=== PATIENT | female | born 1955 | race American Indian/Alaskan Native ===

== ENCOUNTER 2019-04-02 23:24 | Inpatient (IN) | payer MEDICARE ==
[2019-04-02] MEDS ORDERED: HYDROcodone/ACETAMINOPHEN 5-325 MG TAB PO ONE (23:59)
--- NOTE | 2019-04-03 00:07 | Emergency Department Report ---
HPI - General Chief Complaint: Dyspnea/Respdistress Time Seen by Provider: 04/02/19 23:49 - HPI HPI: Room 9 The patient is 63-year-old female presenting with a chief complaint of bilateral lower externally pain and swelling. The patient states she's had progressive bilateral lower extremity pain and swelling since February 2019. The patient states she has not yet sought medical attention for this. The patient states this will worsen to the point where today she is unable to walk. Patient admits to shortness of breath and dyspnea on exertion for several weeks. The patient states she is unable to walk because her legs are too heavy Location: [See above] Duration: [See above] Quality: [See above] Severity: [See above] Timing: [See above] Context: [See above] Modifying factors: [See above] Associated signs and symptoms: [see above] ED Past Medical Hx - Past Medical History Previous Medical History?: Yes Hx Hypertension: Yes Additional medical history: obesity - Surgical History Past Surgical History?: No - Family History Family history: no significant - Social History Smoking Status: Never Smoker Substance Use Type: None (denies illicit drug use) - Medications Home Medications: Home Medications Medication Instructions Recorded Confirmed Last Taken Type Acetaminophen [Tylenol Arthritis] 650 mg PO Q6HR PRN #30 tablet.er 01/19/18 Unknown Rx Ibuprofen [Motrin] 600 mg PO Q8H PRN #30 tablet 01/19/18 Unknown Rx ED Review of Systems ROS: Stated complaint: LEG SWELLING/PAIN Other details as noted in HPI Constitutional: no symptoms reported Eyes: denies: eye pain ENT: denies: throat pain Respiratory: shortness of breath, SOB with exertion Cardiovascular: denies: chest pain Endocrine: no symptoms reported Gastrointestinal: denies: abdominal pain Genitourinary: denies: dysuria Musculoskeletal: myalgia Neurological: denies: headache Physical Exam - Physical Exam Physical Exam: GENERAL: The patient is well-developed well-nourished obese female lying on s tretcher not appearing to be in acute distress. [] HEENT: Normocephalic. Atraumatic. Extraocular motions are intact. Patient has moist mucous membranes. NECK: Supple. Trachea midline CHEST/LUNGS: Clear to auscultation. There is no respiratory distress noted. HEART/CARDIOVASCULAR: Regular. There is no tachycardia. There is no gallop rub or murmur. ABDOMEN: Abdomen is soft, nontender. Patient has normal bowel sounds. There is no abdominal distention. SKIN: There is no rash. There is pitting edema however the patient is exquisitely tender to palpation and is morbidly obese so the degree of pitting edema not fully evaluated. There is no diaphoresis. NEURO: The patient is awake, alert, and oriented. The patient is cooperative. The patient has normal speech MUSCULOSKELETAL: There is no evidence of acute injury. ED Medical Decision Making - Lab Data Result diagrams: 04/03/19 01:32 04/03/19 01:32 Laboratory Tests 04/03/19 04/03/19 04/03/19 01:32 01:32 01:32 WBC 7.3 RBC 3.47 L Hgb 10.4 Hct 31.5 MCV 91 MCH 30 MCHC 33 RDW 14.5 Plt Count 195 Lymph % (Auto) 19.2 [place] % (Auto) 8.2 H Eos % (Auto) 4.4 H Baso % (Auto) 0.5 Lymph # 1.4 [place] # 0.6 Eos # 0.3 Baso # 0.0 Seg Neutrophils % 67.7 Seg Neutrophils # 5.0 PT 13.6 INR 1.03 Sodium 138 Potassium 4.2 Chloride 104.3 Carbon Dioxide 24 Anion Gap 14 BUN 18 H Creatinine 1.0 Estimated GFR > 60 BUN/Creatinine Ratio 18 Glucose 136 H Calcium 8.9 Total Bilirubin 0.30 AST 13 ALT 6 L Alkaline Phosphatase 66 Total Creatine Kinase 50 Troponin T < 0.010 NT-Pro-B Natriuret Pep 1107 H Total Protein 7.5 Albumin 3.4 L Albumin/Globulin Ratio 0.8 - EKG Data -: EKG Interpreted by Me EKG shows normal: sinus rhythm Rate: normal - EKG Data When compared to previous EKG there are: previous EKG unavailable Interpretation: normal EKG - Radiology Data Radiology results: report reviewed (chest x-ray), image reviewed (chest x-ray) interpreted by me: Chest [id number]. No pneumothorax [facility] [address] [place] [address] XRay Report Signed Patient: SANKET THOMAS MR#: [id number] : 1955 Acct:[id number] Age/Sex: 63 / F ADM Date: 04/02/19 Loc: ED Attending Dr: Ordering Physician: SURINDER HADDAD MD Date of Service: 04/02/19 Procedure(s): XR chest 1V ap Accession Number(s): [id number] cc: SURINDER HADDAD MD Fluoro Time In Minutes: CHEST 1 VIEW INDICATION: shortness of breath. COMPARISON: None. FINDINGS: Support devices: None. Heart: Upper limits of normal. Lungs/Pleura: There appears to be pulmonary venous hypertension. No pulmonary edema, significant effusion, or pneumothorax. IMPRESSION: 1. Megaly with presumed pulmonary venous hypertension. Signer Name: Edinson Scales MD Signed: 04/03/2019 12:25 AM Workstation Name: [id number] Transcribed By: ALTAGARCIA Dictated By: Edinson Scales MD Electronically Authenticated By: Ednison Scales MD Signed Date/Time: 04/03/1924 DD/ TD/TT: - Differential Diagnosis CHF, renal failure, volume overload Critical care attestation.: If time is entered above; I have spent that time in minutes in the direct care of this critically ill patient, excluding procedure time. ED Disposition Clinical Impression: New onset of congestive heart failure, Peripheral edema, Shortness of breath Disposition: -09 OP ADMIT IP TO THIS HOSP Is pt being admited?: Yes Does the pt Need Aspirin: Yes Condition: Fair Referrals: BERTHA GORDONBETHANY MD ROCIO [Primary Care Provider] - 3-5 Days Time of Disposition: 02:16 (hospitalist paged (Dr. Cheyenne Max))
--- NOTE | 2019-04-03 00:30 | XRay Report ---
CHEST 1 VIEW INDICATION: shortness of breath. COMPARISON: None. FINDINGS: Support devices: None. Heart: Upper limits of normal. Lungs/Pleura: There appears to be pulmonary venous hypertension. No pulmonary edema, significant effu jak, or pneumothorax. IMPRESSION: 1. Megaly with presumed pulmonary venous hypertension. Signer Name: Edinson Scales MD Signed: 04/03/2019 12:25 AM Workstation Name: [id number]
[2019-04-03 01:54] LABS: Basophils % (Auto) 0.5 % (0.0-1.8); Eosinophils # (Auto) 0.3 K/mm3 (0.0-0.4); Eosinophils % (Auto) 4.4 % (0.0-4.3); Hematocrit 31.5 % (30.3-42.9); Hemoglobin 10.4 gm/dl (10.1-14.3); Lymphocytes # (Auto) 1.4 K/mm3 (1.2-5.4); Lymphocytes % (Auto) 19.2 % (13.4-35.0); Mean Corpuscular HGB Conc 33 % (30-34); Mean Corpuscular Volume 91 fl (79-97); Monocytes # (Auto) 0.6 K/mm3 (0.0-0.8); Monocytes % (Auto) 8.2 % (0.0-7.3); Platelet Count 195 K/mm3 (140-440); Red Blood Count 3.47 M/mm3 (3.65-5.03); Red Cell Distribution Width 14.5 % (13.2-15.2)
[2019-04-03 02:11] LABS: Alanine Aminotransferase 6 units/L (7-56); Albumin 3.4 g/dL (3.9-5); BUN/Creatinine Ratio 18; Blood Urea Nitrogen 18 mg/dL (7-17); Calcium 8.9 mg/dL (8.4-10.2); Hemolysis Index 1; INR 1.03 (0.87-1.13)
[2019-04-03] MEDS ORDERED: ASPIRIN 325 MG TAB PO ONE (02:17)
[2019-04-03] MEDS ORDERED: FUROSEMIDE 40 MG/4 ML INJ IV ONE (02:17)
[2019-04-03 02:23] LABS: Creatine Kinase MB < 1.0 ng/mL (0.0-4.0)
[2019-04-03] MEDS ORDERED: ONDANSETRON 4 MG/2 ML INJ IV PRN (02:59)
[2019-04-03] MEDS ORDERED: ALBUTEROL 2.5 MG/3 ML NEBU IH PRN (02:59)
[2019-04-03] MEDS ORDERED: ACETAMINOPHEN 325 MG TAB PO PRN (02:59)
[2019-04-03] MEDS ORDERED: oxyCODONE /ACETAMINOPHEN 5-325MG TAB PO PRN (03:46)
--- NOTE | 2019-04-03 04:11 | History and Physical Report ---
<ANAI DUDLEY - Last Filed: 04/03/19 04:11> History of Present Illness Date of examination: 04/03/19 Date of admission: 04/03/2019 Chief complaint: Worsening bilateral lower extremity edema History of present illness: 63-year-old -Welsh female with history of hypertension and obesity who presents to [facility] ED with complaints of progressively worsening bilateral lower extremity edema. Patient states that she is on able to ambulate due to worsening bilateral lower extremity edema. Specifically patient is concerned about right lower extremity which is worse than the left. Right lower extremity edema goes all the way up to her thigh. Patient states that she noticed that her edema has been getting worse since February 2019. She decided to come in today for further evaluation treatment because she is unable to ambulate because of her worsening edema. At baseline patient ambulates with a walker. Patient is noncompliant with antihypertensive meds. She denies history of heart failure or cardiac work-up. Past History Past Medical History: hypertension, other (Morbid obesity) Past Surgical History: No surgical history Social history: lives with family (Sister) Family history: no significant family history Medications and Allergies Allergies Allergy/AdvReac Type Severity Reaction Status Date / Time Penicillins Allergy Hives Verified 04/03/19 00:37 Home Medications Medication Instructions Recorded Confirmed Last Taken Type Acetaminophen [Tylenol Arthritis] 650 mg PO Q6HR PRN #30 tablet.er 01/19/18 04/03/19 Unknown Rx Ibuprofen [Motrin] 600 mg PO Q8H PRN #30 tablet 01/19/18 04/03/19 Unknown Rx Active Meds: Active Medications Acetaminophen (Tylenol) 650 mg PO Q4H PRN PRN Reason: Pain MILD(1-3)/Fever >100.5/ROY Albuterol (Proventil) 2.5 mg IH Q3HRT PRN PRN Reason: Shortness Of Breath Amlodipine Besylate (Amlodipine) 5 mg PO QDAY KALE Furosemide (Lasix) 40 mg IV 0600,1800 KALE Heparin Sodium (Porcine) (Heparin) 5,000 unit SUB-Q Q12HR KALE Ondansetron HCl (Zofran) 4 mg IV Q8H PRN PRN Reason: Nausea And Vomiting Oxycodone/Acetaminophen (Percocet 5/325) 1 tab PO Q6H PRN PRN Reason: Pain, Moderate (4-6) Sodium Chloride (Sodium Chloride Flush Syringe 10 Ml) 10 ml IV BID KALE Sodium Chloride (Sodium Chloride Flush Syringe 10 Ml) 10 ml IV PRN PRN PRN Reason: LINE FLUSH Review of Systems All systems: negative Cardiovascular: shortness of breath, dyspnea on exertion, high blood pressure, leg edema Exam - Physical Exam Narrative exam: Physical exam General appearance: Present: No acute distress, alert and oriented 3, morbidly obese, adult female - EENT Eyes: Present: PERRL, EOM intact ENT: hearing intact, missing teeth - Neck Neck: Present: supple, normal ROM - Respiratory Respiratory effort: Non-labored Respiratory: Diminished - Cardiovascular Heart rate: 63 (bpm) Rhythm: Sinus rhythm Heart Sounds: Present: S1 & S2. Absent: rub, click - Extremities Extremities: no ischemia, pulses intact, bilateral lower extremity edema R>L - Peripheral Assessment Peripheral Pulses: within normal limits - Abdominal General gastrointestinal: Obese, soft, non-tender, normal bowel sounds - Integumentary Integumentary: Present: warm, dry - Musculoskeletal Musculoskeletal: Able to move all extremities -Neurological Neurological: CN II-XII intact - Psychiatric Psychiatric: cooperative - Constitutional Vitals: Temp Pulse Resp BP Pulse Ox 98 F 63 18 164/52 99 04/02/19 23:50 04/03/19 00:01 04/03/19 01:30 04/03/19 00:15 04/03/19 00:15 JERSON score - Jerson Score Age > 65: (0) No Aspirin use within the Past 7 Days: (0) No 3 or more CAD Risk Factors: (0) No 2 or more Angina events in past 24 hrs: (0) No Known CAD with more than 50% Stenosis: (0) No Elevated Cardiac Markers: (0) No ST Deviation Greater than 0.5mm: (0) No JERSON Score: 0 Results - Labs CBC & Chem 7: 04/03/19 01:32 04/03/19 01:32 Labs: Laboratory Last Values WBC 7.3 K/mm3 (4.5-11.0) 04/03/19 01:32 RBC 3.47 M/mm3 (3.65-5.03) L 04/03/19 01:32 Hgb 10.4 gm/dl (10.1-14.3) 04/03/19 01:32 Hct 31.5 % (30.3-42.9) 04/03/19 01:32 MCV 91 fl (79-97) 04/03/19 01:32 MCH 30 pg (28-32) 04/03/19 01:32 MCHC 33 % (30-34) 04/03/19 01:32 RDW 14.5 % (13.2-15.2) 04/03/19 01:32 Plt Count 195 K/mm3 (140-440) 04/03/19 01:32 Lymph % (Auto) 19.2 % (13.4-35.0) 04/03/19 01:32 [place] % (Auto) 8.2 % (0.0-7.3) H 04/03/19 01:32 Eos % (Auto) 4.4 % (0.0-4.3) H 04/03/19 01:32 Baso % (Auto) 0.5 % (0.0-1.8) 04/03/19 01:32 Lymph # 1.4 K/mm3 (1.2-5.4) 04/03/19 01:32 [place] # 0.6 K/mm3 (0.0-0.8) 04/03/19 01:32 Eos # 0.3 K/mm3 (0.0-0.4) 04/03/19 01:32 Baso # 0.0 K/mm3 (0.0-0.1) 04/03/19 01:32 Seg Neutrophils % 67.7 % (40.0-70.0) 04/03/19 01:32 Seg Neutrophils # 5.0 K/mm3 (1.8-7.7) 04/03/19 01:32 PT 13.6 Sec. (12.2-14.9) 04/03/19 01:32 INR 1.03 (0.87-1.13) 04/03/19 01:32 Sodium 138 mmol/L (137-145) 04/03/19 01:32 Potassium 4.2 mmol/L (3.6-5.0) 04/03/19 01:32 Chloride 104.3 mmol/L (98-107) 04/03/19 01:32 Carbon Dioxide 24 mmol/L (22-30) 04/03/19 01:32 Anion Gap 14 mmol/L 04/03/19 01:32 BUN 18 mg/dL (7-17) H 04/03/19 01:32 Creatinine 1.0 mg/dL (0.7-1.2) 04/03/19 01:32 Estimated GFR > 60 ml/min 04/03/19 01:32 BUN/Creatinine Ratio 18 % 04/03/19 01:32 Glucose 136 mg/dL (65-100) H 04/03/19 01:32 Calcium 8.9 mg/dL (8.4-10.2) 04/03/19 01:32 Total Bilirubin 0.30 mg/dL (0.1-1.2) 04/03/19 01:32 AST 13 units/L (5-40) 04/03/19 01:32 ALT 6 units/L (7-56) L 04/03/19 01:32 Alkaline Phosphatase 66 units/L (35-129) 04/03/19 01:32 Total Creatine Kinase 50 units/L (30-135) 04/03/19 01:32 CK-MB (CK-2) < 1.0 ng/mL (0.0-4.0) 04/03/19 01:32 CK-MB (CK-2) Rel Index 2.0 (0-4) 04/03/19 01:32 Troponin T < 0.010 ng/mL (0.00-0.029) 04/03/19 01:32 NT-Pro-B Natriuret Pep 1107 pg/mL (0-900) H 04/03/19 01:32 Total Protein 7.5 g/dL (6.3-8.2) 04/03/19 01:32 Albumin 3.4 g/dL (3.9-5) L 04/03/19 01:32 Albumin/Globulin Ratio 0.8 % 04/03/19 01:32 - Imaging and Cardiology Imaging and Cardiology: CXR: FINDINGS: Support devices: None. Heart: Upper limits of normal. Lungs/Pleura: There appears to be pulmonary venous hypertension. No pulmonary edema, significant effusion, or pneumothorax. IMPRESSION: 1. Megaly with presumed pulmonary venous hypertension. Assessment and Plan Assessment and plan: 63-year-old -Welsh female with history of hypertension and obesity who presents to [facility] ED with complaints of progressively worsening bilateral lower extremity edema. Acute CHF (new onset) -BNP elevated at 1107 -Troponin x1, will continue to trend -CXR shows cardio megaly with presumed pulmonary venous hypertension -Patient has 3+ bilateral lower extremity edema R>L -Start IV Lasix twice a day -Daily fluid restriction 1.5L -Echo pending -Cardiology consulted HTN -Uncontrolled -Monitor BP -Start Norvasc 5mg daily -IV hydralazine when necessary Obesity -BMI 70.1kg -Counseled for diet and lifestyle modifications -May benefit from OP weight mgmt program Mild to moderate malnutrition -Albumin 3.4 -Dietitian consulted Debility -Ambulates with walker at baseline -Unable to ambulate due to bilateral lower extremity edema -PT/OT consult pending DVT PPX -on Heparin Advance Directives: No VTE prophylaxis?: Chemical Plan of care discussed with patient/family: Yes <DAO LUNSFORD - Last Filed: 04/03/19 06:39> History of Present Illness Date of admission: 04/03/19 02:59 Medications and Allergies Active Meds: Active Medications Acetaminophen (Tylenol) 650 mg PO Q4H PRN PRN Reason: Pain MILD(1-3)/Fever >100.5/ROY Albuterol (Proventil) 2.5 mg IH Q3HRT PRN PRN Reason: Shortness Of Breath Amlodipine Besylate (Amlodipine) 5 mg PO QDAY KALE Furosemide (Lasix) 40 mg IV 0600,1800 KALE Heparin Sodium (Porcine) (Heparin) 5,000 unit SUB-Q Q12HR KALE Hydralazine HCl (Apresoline) 10 mg IV Q4HR PRN PRN Reason: Blood Pressure Ondansetron HCl (Zofran) 4 mg IV Q8H PRN PRN Reason: Nausea And Vomiting Oxycodone/Acetaminophen (Percocet 5/325) 1 tab PO Q6H PRN PRN Reason: Pain, Moderate (4-6) Sodium Chloride (Sodium Chloride Flush Syringe 10 Ml) 10 ml IV BID KALE Sodium Chloride (Sodium Chloride Flush Syringe 10 Ml) 10 ml IV PRN PRN PRN Reason: LINE FLUSH Exam - Constitutional Vitals: Temp Pulse Resp BP Pulse Ox 98 F 59 L 20 154/60 99 04/02/19 23:50 04/03/19 05:00 04/03/19 05:00 04/03/19 05:00 04/03/19 05:00 Results - Labs CBC & Chem 7: 04/03/19 01:32 04/03/19 01:32 Labs: Laboratory Last Values WBC 7.3 K/mm3 (4.5-11.0) 04/03/19 01:32 RBC 3.47 M/mm3 (3.65-5.03) L 04/03/19 01:32 Hgb 10.4 gm/dl (10.1-14.3) 04/03/19 01:32 Hct 31.5 % (30.3-42.9) 04/03/19 01:32 MCV 91 fl (79-97) 04/03/19 01:32 MCH 30 pg (28-32) 04/03/19 01:32 MCHC 33 % (30-34) 04/03/19 01:32 RDW 14.5 % (13.2-15.2) 04/03/19 01:32 Plt Count 195 K/mm3 (140-440) 04/03/19 01:32 Lymph % (Auto) 19.2 % (13.4-35.0) 04/03/19 01:32 [place] % (Auto) 8.2 % (0.0-7.3) H 04/03/19 01:32 Eos % (Auto) 4.4 % (0.0-4.3) H 04/03/19 01:32 Baso % (Auto) 0.5 % (0.0-1.8) 04/03/19 01:32 Lymph # 1.4 K/mm3 (1.2-5.4) 04/03/19 01:32 [place] # 0.6 K/mm3 (0.0-0.8) 04/03/19 01:32 Eos # 0.3 K/mm3 (0.0-0.4) 04/03/19 01:32 Baso # 0.0 K/mm3 (0.0-0.1) 04/03/19 01:32 Seg Neutrophils % 67.7 % (40.0-70.0) 04/03/19 01:32 Seg Neutrophils # 5.0 K/mm3 (1.8-7.7) 04/03/19 01:32 PT 13.6 Sec. (12.2-14.9) 04/03/19 01:32 INR 1.03 (0.87-1.13) 04/03/19 01:32 Sodium 138 mmol/L (137-145) 04/03/19 01:32 Potassium 4.2 mmol/L (3.6-5.0) 04/03/19 01:32 Chloride 104.3 mmol/L (98-107) 04/03/19 01:32 Carbon Dioxide 24 mmol/L (22-30) 04/03/19 01:32 Anion Gap 14 mmol/L 04/03/19 01:32 BUN 18 mg/dL (7-17) H 04/03/19 01:32 Creatinine 1.0 mg/dL (0.7-1.2) 04/03/19 01:32 Estimated GFR > 60 ml/min 04/03/19 01:32 BUN/Creatinine Ratio 18 % 04/03/19 01:32 Glucose 136 mg/dL (65-100) H 04/03/19 01:32 Calcium 8.9 mg/dL (8.4-10.2) 04/03/19 01:32 Total Bilirubin 0.30 mg/dL (0.1-1.2) 04/03/19 01:32 AST 13 units/L (5-40) 04/03/19 01:32 ALT 6 units/L (7-56) L 04/03/19 01:32 Alkaline Phosphatase 66 units/L (35-129) 04/03/19 01:32 Total Creatine Kinase 50 units/L (30-135) 04/03/19 01:32 CK-MB (CK-2) < 1.0 ng/mL (0.0-4.0) 04/03/19 01:32 CK-MB (CK-2) Rel Index 2.0 (0-4) 04/03/19 01:32 Troponin T < 0.010 ng/mL (0.00-0.029) 04/03/19 01:32 NT-Pro-B Natriuret Pep 1107 pg/mL (0-900) H 04/03/19 01:32 Total Protein 7.5 g/dL (6.3-8.2) 04/03/19 01:32 Albumin 3.4 g/dL (3.9-5) L 04/03/19 01:32 Albumin/Globulin Ratio 0.8 % 04/03/19 01:32 Assessment and Plan Assessment and plan: Patient seen and examined, 63-year-old presents with shortness of breath, lower extremity edema and PND. Agree with plan as stated above, in addition add beta-yasmeen, MAYELIN inhibitor, aspirin, d/c norvasc, monitor I's and O's, daily weights. Check dopplers, patient complaining of pain in her legs
[2019-04-03] MEDS ORDERED: hydrALAZINE 20 MG/1 ML INJ IV PRN (04:15)
[2019-04-03] MEDS ORDERED: ASPIRIN 325 MG TAB ONE (05:20)
[2019-04-03] MEDS ORDERED: FLU VACC QUAD 2019-20 (3 YR UP)/PF 60 MCG/0.5 ML SYRINGE IM ONE (07:14)
[2019-04-03] MEDS ORDERED: amLODIPine 5 MG TAB PO SCH (10:00)
[2019-04-03] MEDS: carvediloL 3.125 MG TAB PO SCH ×2 (11:47→22:00)
[2019-04-03] MEDS: ASPIRIN 81 MG TAB CHEW PO SCH (11:47)
[2019-04-03] MEDS: HEPARIN 5,000 UNIT/1 ML VIAL SUB-Q SCH ×2 (11:47→22:19)
[2019-04-03] MEDS: LISINOPRIL 20 MG TAB PO SCH (11:47)
--- NOTE | 2019-04-03 11:52 | Consultation ---
History of Present Illness Consult date: 04/03/19 Consult reason: congestive heart failure, shortness of breath History of present illness: 63-year-old female was admitted through the emergency room with increasing leg swelling of few Weeks duration, apparently started in February and it got w orse. Also she is having shortness of breath and she walks a few steps and she is getting shortness of breath. No chest pain. No rthopnea.Patient's activities are limited,has difficulty with balance,uses walker and uses a cane for long time because of difficulty with balance . Patient had similar symptoms of increasing leg swelling or shortness of breath in 2014 and apparently was admitted to [facility] and workup was done. Past History Past Medical History: hypertension (since age 13.), other (Morbid obesity for long time.hx. of asthma as child.). denies: CAD, diabetes, ESRD, stroke Past Surgical History: No surgical history Social history: lives with family (Sister) Family history: no significant family history Medications and Allergies Allergies Allergy/AdvReac Type Severity Reaction Status Date / Time Penicillins Allergy Hives Verified 04/03/19 00:37 Home Medications Medication Instructions Recorded Confirmed Last Taken Type Acetaminophen [Tylenol Arthritis] 650 mg PO Q6HR PRN #30 tablet.er 01/19/18 04/03/19 Unknown Rx Ibuprofen [Motrin] 600 mg PO Q8H PRN #30 tablet 01/19/18 04/03/19 Unknown Rx Active Meds: Active Medications Acetaminophen (Tylenol) 650 mg PO Q4H PRN PRN Reason: Pain MILD(1-3)/Fever >100.5/ROY Albuterol (Proventil) 2.5 mg IH Q3HRT PRN PRN Reason: Shortness Of Breath Aspirin (Baby Aspirin) 81 mg PO QDAY [facility] Last Admin: 04/03/19 11:47 Dose: 81 mg Documented by: Carvedilol (Coreg) 3.125 mg PO BID [facility] Last Admin: 04/03/19 11:47 Dose: 3.125 mg Documented by: Furosemide (Lasix) 40 mg IV 0600,1800 [facility] Heparin Sodium (Porcine) (Heparin) 5,000 unit SUB-Q Q12HR [facility] Hydralazine HCl (Apresoline) 10 mg IV Q4HR PRN PRN Reason: Blood Pressure Lisinopril (Zestril) 20 mg PO QDAY [facility] Last Admin: 04/03/19 11:47 Dose: 20 mg Documented by: Ondansetron HCl (Zofran) 4 mg IV Q8H PRN PRN Reason: Nausea And Vomiting Oxycodone/Acetaminophen (Percocet 5/325) 1 tab PO Q6H PRN PRN Reason: Pain, Moderate (4-6) Sodium Chloride (Sodium Chloride Flush Syringe 10 Ml) 10 ml IV BID [facility] Sodium Chloride (Sodium Chloride Flush Syringe 10 Ml) 10 ml IV PRN PRN PRN Reason: LINE FLUSH Review of Systems Constitutional: no weight loss, no sweats Ears, nose, mouth and throat: no ear discharge Breasts: no deferred Cardiovascular: shortness of breath, dyspnea on exertion, leg edema, decreased exercise tolerance, no chest pain, no orthopnea, no palpitations, no paroxysmal nocturnal dyspnea Respiratory: cough, shortness of breath, dyspnea on exertion Gastrointestinal: no abdominal pain Genitourinary Female: no menorrhagia Menstruation: other (hx. of partial hysterectomy.) Integumentary: no rash Neurological: weakness, gait dysfunction Psychiatric: no depression Endocrine: no cold intolerance Hematologic/Lymphatic: no easy bleeding Allergic/Immunologic: no urticaria Physical Examination Vital Signs Pulse Resp Pulse Ox 66 18 100 04/02/19 23:42 04/02/19 23:42 04/02/19 23:42 General appearance: obese (Morbidly obese) Neck: Positive: neck supple, trachea midline Cardiac: Positive: Reg Rate and Rhythm, S4. Negative: Audible Murmur Lungs: Positive: Decreased Breath Sounds, Wheezes (scattered wheezing noted.) Neuro: Positive: Grossly Intact Abdomen: Positive: Soft Female genitourinary: deferred Skin: Negative: Rash Extremities: Present: lower extr. pulses, +1 Edema Results 04/03/19 01:32 04/03/19 01:32 Cardiac Enzymes 04/03/19 Range/Units 01:32 AST 13 (5-40) units/L CK-MB (CK-2) < 1.0 (0.0-4.0) ng/mL Coagulation 04/03/19 Range/Units 01:32 PT 13.6 (12.2-14.9) Sec. INR 1.03 (0.87-1.13) CBC 04/03/19 Range/Units 01:32 WBC 7.3 (4.5-11.0) K/mm3 RBC 3.47 L (3.65-5.03) M/mm3 Hgb 10.4 (10.1-14.3) gm/dl Hct 31.5 (30.3-42.9) % Plt Count 195 (140-440) K/mm3 Lymph # 1.4 (1.2-5.4) K/mm3 [place] # 0.6 (0.0-0.8) K/mm3 Eos # 0.3 (0.0-0.4) K/mm3 Baso # 0.0 (0.0-0.1) K/mm3 Comprehensive Metabolic Panel 04/03/19 Range/Units 01:32 Sodium 138 (137-145) mmol/L Potassium 4.2 (3.6-5.0) mmol/L Chloride 104.3 (98-107) mmol/L Carbon Dioxide 24 (22-30) mmol/L BUN 18 H (7-17) mg/dL Creatinine 1.0 (0.7-1.2) mg/dL Glucose 136 H (65-100) mg/dL Calcium 8.9 (8.4-10.2) mg/dL AST 13 (5-40) units/L ALT 6 L (7-56) units/L Alkaline Phosphatase 66 (35-129) units/L Total Protein 7.5 (6.3-8.2) g/dL Albumin 3.4 L (3.9-5) g/dL EKG interpretations - EKG Sinus rhythms and dysrhythmias: sinus rhythm (S.R,WNL.) Assessment and Plan 63-year-old -Prydein[place] female, morbidly obese but long-term, activities are limited because of balance problems and uses a cane and walker. She is having increasing leg edema particularly right leg more than left leg 2 weeks. Alaso c/o weakness of right lower extremity. This is a chronic issue, was evaluated at [facility] in 2015 with similar symptoms of weakness in the right lower extremity and increasing leg swelling. Patient cannot walk much. He gets short of breath. Has long-standing essential hypertension, no diabetes or known history of hyperlipidemia. Patient denies any chest pain, no palpitations.No previous cardiac history, no history of MD,CHF orcardiac arhthmia in past.EKG is showing S.R,is unremarkable,cardiac troponin's x 2 are unremarkable. Patient used to be followed by [facility],recently chaged to different primary care. Her gait is unsteady and she cannot walk much. Patient's symptoms appear to be chronic. Etiology of her symptoms is not clear. Patient has 1-2+ edema of the lower extremities in addition to being mor bidly obese. We will get a venous flow studies to rule out any underlying deep vein thrombosis. Also patient says that she cannot walk few steps without getting shortness of breath. Also recommended a CT and he'll rule out any underlying pulmonary embolus. Cardiac Status appears to be stable. Chest x-ray did not show obvious congestive heart failure. Evaluated BNP was noted. We will check the echocardiogram for LV systolic and diastolic function and right-sided chamber sizes. Patient is morbidly obese with occasional wheezing. Underlying lung disease need to be reevaluated. Also patient has a history of asthma as child. Agree with diuresis. await results of echocardiogram and CTA of the chest and Doppler venous flow studies of the lower extremities. Patient appears comfortable at this time. Presently etiology of her SOB and leg edema is not clear. - Patient Problems (1) New onset of congestive heart failure Current Visit: Yes Status: Acute (2) Peripheral edema Current Visit: Yes Status: Acute (3) Shortness of breath Current Visit: Yes Status: Acute
[2019-04-03] MEDS: FUROSEMIDE 40 MG/4 ML INJ IV SCH (18:32)
[2019-04-03] MEDS ORDERED: diphenhydrAMINE 25 MG CAP PO PRN (22:10)
[2019-04-04] MEDS: FUROSEMIDE 40 MG/4 ML INJ IV SCH ×2 (06:12→20:25)
[2019-04-04 08:13] LABS: Basophils % (Auto) 0.6 % (0.0-1.8); Eosinophils # (Auto) 0.3 K/mm3 (0.0-0.4); Eosinophils % (Auto) 4.7 % (0.0-4.3); Hematocrit 31.3 % (30.3-42.9); Hemoglobin 10.4 gm/dl (10.1-14.3); Lymphocytes # (Auto) 1.8 K/mm3 (1.2-5.4); Lymphocytes % (Auto) 27.4 % (13.4-35.0); Mean Corpuscular HGB Conc 33 % (30-34); Mean Corpuscular Volume 90 fl (79-97); Monocytes # (Auto) 0.5 K/mm3 (0.0-0.8); Monocytes % (Auto) 8.2 % (0.0-7.3); Platelet Count 207 K/mm3 (140-440); Red Blood Count 3.47 M/mm3 (3.65-5.03); Red Cell Distribution Width 14.5 % (13.2-15.2)
--- NOTE | 2019-04-04 08:19 | Progress Note ---
Assessment and Plan Assessment and plan: 63-year-old woman with history of hypertension and obesity. Patient is nonadherent to her blood pressure medications. She has chronic lower extremity edema, however it is worsening since February. Edema has gotten so bad. it is now above her thighs and making difficult for her to walk. Bilateral lower extremity edema Echo shows preserved EF, with severe pulmonary hypertension Diuretics, cardiology input appreciated -Obtain lower extremity Dopplers Severe pulmonary hypertension demonstrated on echo Pulmonary consult Hypertensive urgency Optimize meds Morbid obesity Preventative health counseling performed for 17 minutes, needs outpatient weight loss program Moderate malnutrition Dietitian consult Ambulatory dysfunction Awaiting PT consult DVT prophylaxis; heparin subcu History Interval history: Review of systems Constitutional: No fevers, no malaise, no joint pains CVS: No chest pain, no orthopnea, admits to improvement in lower extremity edema GI: No abdominal pain, no diarrhea, no vomiting, no constipation Respiratory: , no wheezing, no coughing Hospitalist Physical - Physical exam Narrative exam: General.: Appears well, no distress, morbidly obese HEENT: Moist mucous membranes, extraocular muscles intact, no lymphadenopathy Neck: supple Cardiac: S1-S2 heard Lungs: clear to auscultation bilaterally Abdomen: soft , nontender, nondistended, bowel sounds positive Extremities: Bilateral bipedal pitting edema Skin: no rash or lesions Neurologic: no gross focal deficits Psych: calm, and cooperative - Constitutional Vitals: Temp Pulse Resp BP Pulse Ox 98.0 F 69 18 160/61 94 04/04/19 04:30 04/04/19 04:30 04/04/19 04:30 04/04/19 04:30 04/04/19 04:30 General appearance: Present: obese (Morbidly obese) MARK score - Mark Score Age > 65: (0) No Aspirin use within the Past 7 Days: (0) No 3 or more CAD Risk Factors: (0) No 2 or more Angina events in past 24 hrs: (0) No Known CAD with more than 50% Stenosis: (0) No Elevated Cardiac Markers: (0) No ST Deviation Greater than 0.5mm: (0) No MARK Score: 0 Results - Labs CBC & Chem 7: 04/04/19 07:25 04/04/19 07:18 Labs: Laboratory Last Values WBC 6.6 K/mm3 (4.5-11.0) 04/04/19 07:25 RBC 3.47 M/mm3 (3.65-5.03) L 04/04/19 07:25 Hgb 10.4 gm/dl (10.1-14.3) 04/04/19 07:25 Hct 31.3 % (30.3-42.9) 04/04/19 07:25 MCV 90 fl (79-97) 04/04/19 07:25 MCH 30 pg (28-32) 04/04/19 07:25 MCHC 33 % (30-34) 04/04/19 07:25 RDW 14.5 % (13.2-15.2) 04/04/19 07:25 Plt Count 207 K/mm3 (140-440) 04/04/19 07:25 Lymph % (Auto) 27.4 % (13.4-35.0) 04/04/19 07:25 [place] % (Auto) 8.2 % (0.0-7.3) H 04/04/19 07:25 Eos % (Auto) 4.7 % (0.0-4.3) H 04/04/19 07:25 Baso % (Auto) 0.6 % (0.0-1.8) 04/04/19 07:25 Lymph # 1.8 K/mm3 (1.2-5.4) 04/04/19 07:25 [place] # 0.5 K/mm3 (0.0-0.8) 04/04/19 07:25 Eos # 0.3 K/mm3 (0.0-0.4) 04/04/19 07:25 Baso # 0.0 K/mm3 (0.0-0.1) 04/04/19 07:25 Seg Neutrophils % 59.1 % (40.0-70.0) 04/04/19 07:25 Seg Neutrophils # 3.9 K/mm3 (1.8-7.7) 04/04/19 07:25 PT 13.6 Sec. (12.2-14.9) 04/03/19 01:32 INR 1.03 (0.87-1.13) 04/03/19 01:32 Sodium 138 mmol/L (137-145) 04/03/19 01:32 Potassium 4.2 mmol/L (3.6-5.0) 04/03/19 01:32 Chloride 104.3 mmol/L (98-107) 04/03/19 01:32 Carbon Dioxide 24 mmol/L (22-30) 04/03/19 01:32 Anion Gap 14 mmol/L 04/03/19 01:32 BUN 18 mg/dL (7-17) H 04/03/19 01:32 Creatinine 1.0 mg/dL (0.7-1.2) 04/03/19 01:32 Estimated GFR > 60 ml/min 04/03/19 01:32 BUN/Creatinine Ratio 18 % 04/03/19 01:32 Glucose 136 mg/dL (65-100) H 04/03/19 01:32 Calcium 8.9 mg/dL (8.4-10.2) 04/03/19 01:32 Total Bilirubin 0.30 mg/dL (0.1-1.2) 04/03/19 01:32 AST 13 units/L (5-40) 04/03/19 01:32 ALT 6 units/L (7-56) L 04/03/19 01:32 Alkaline Phosphatase 66 units/L (35-129) 04/03/19 01:32 Total Creatine Kinase 50 units/L (30-135) 04/03/19 01:32 CK-MB (CK-2) < 1.0 ng/mL (0.0-4.0) 04/03/19 01:32 CK-MB (CK-2) Rel Index 2.0 (0-4) 04/03/19 01:32 Troponin T < 0.010 ng/mL (0.00-0.029) 04/03/19 07:55 NT-Pro-B Natriuret Pep 1107 pg/mL (0-900) H 04/03/19 01:32 Total Protein 7.5 g/dL (6.3-8.2) 04/03/19 01:32 Albumin 3.4 g/dL (3.9-5) L 04/03/19 01:32 Albumin/Globulin Ratio 0.8 % 04/03/19 01:32 Active Medications - Current Medications Current Medications: Generic Name Dose Route Start Last Admin Trade Name Freq PRN Reason Stop Dose Admin Acetaminophen 650 mg 04/03/19 02:59 Tylenol PO Q4H PRN Pain MILD(1-3)/Fever >100.5/ROY Albuterol 2.5 mg 04/03/19 02:59 Proventil IH Q3HRT PRN Shortness Of Breath Aspirin 81 mg 04/03/19 10:00 04/03/19 11:47 Baby Aspirin PO 81 mg QDAY KALE Administration Carvedilol 3.125 mg 04/03/19 10:00 04/03/19 22:00 Coreg PO 3.125 mg BID KALE Administration Diphenhydramine HCl 25 mg 04/03/19 22:10 Benadryl PO Q6H PRN Itching Furosemide 40 mg 04/03/19 18:00 04/04/19 06:12 Lasix IV 40 mg 0600,1800 KALE Administration Heparin Sodium (Porcine) 5,000 unit 04/03/19 10:00 04/03/19 22:19 Heparin SUB-Q 5,000 unit Q12HR KALE Administration Hydralazine HCl 10 mg 04/03/19 04:15 Apresoline IV Q4HR PRN Blood Pressure Lisinopril 20 mg 04/03/19 10:00 04/03/19 11:47 Zestril PO 20 mg QDAY KALE Administration Ondansetron HCl 4 mg 04/03/19 02:59 Zofran IV Q8H PRN Nausea And Vomiting Oxycodone/Acetaminophen 1 tab 04/03/19 03:46 Percocet 5/325 PO Q6H PRN Pain, Moderate (4-6) Sodium Chloride 10 ml 04/03/19 10:00 04/03/19 22:20 Sodium Chloride Flush Syringe 10 Ml IV 10 ml BID KALE Administration Sodium Chloride 10 ml 04/03/19 02:59 Sodium Chloride Flush Syringe 10 Ml IV PRN PRN LINE FLUSH
[2019-04-04 08:42] LABS: BUN/Creatinine Ratio 15; Blood Urea Nitrogen 16 mg/dL (7-17); Calcium 8.9 mg/dL (8.4-10.2); Hemolysis Index 1
[2019-04-04] MEDS ORDERED: FLU VACC QUAD 2019-20 (3 YR UP)/PF 60 MCG/0.5 ML SYRINGE IM ONE (12:00)
[2019-04-04] MEDS: carvediloL 3.125 MG TAB PO SCH ×2 (12:44→22:11)
[2019-04-04] MEDS: ASPIRIN 81 MG TAB CHEW PO SCH (12:44)
[2019-04-04] MEDS: LISINOPRIL 20 MG TAB PO SCH (12:46)
[2019-04-04] MEDS: HEPARIN 5,000 UNIT/1 ML VIAL SUB-Q SCH ×2 (12:46→22:11)
--- NOTE | 2019-04-04 13:33 | Vascular Lab Report ---
DUPLEX DOPPLER LOWER EXTREMITY VEINS, BILATERAL INDICATION: eval for dvt. Bilateral lower extremity edema TECHNIQUE: Duplex doppler imaging was performed through the veins of both lower extremities using ve nous compression and other maneuvers. COMPARISON: No relevant prior imaging study available. FINDINGS: Right Common femoral vein: Negative. Right Superficial femoral vein: Negative. Right Popliteal vein: Negative. Right Calf veins: Negative. Left Common femoral vein: Negative. Left Superficial femoral vein: Negative. Left Popliteal vein: Negative. Left Calf veins: Negative. Additional findings: Bilateral popliteal cysts are noted. IMPRESSION: No sonographic evidence for DVT in either lower extremity. Signer Name: Bennie Mckeon Jr, MD Signed: 04/04/2019 1:29 PM Workstation Name: [id number]
--- NOTE | 2019-04-04 14:25 | Consultation ---
History of Present Illness Consult date: 04/04/19 Reason for consult: dyspnea, other (CHF and Hypertension.) History of present illness: PULMONARY AND CRITICAL CARE CONSULTATION. DR. BERNAL THANK YOU FOR ASKING US TO PARTICIPATE IN THE CARE OF THIS PATIENT. 63-year-old -[place] female with history of hypertension and obesity who presents to [facility] ED with complaints of progressively worsening bilateral lower extremity edema. Patient states that she is on able to ambulate due to worsening bilateral lower extremity edema. Specifically patient is concerned about right lower extremity which is worse than the left. Right lower extremity edema goes all the way up to her thigh. Patient states that she noticed that her edema has been getting worse since February 2019. She decided to come in today for further evaluation treatment because she is unable to ambulate because of her worsening edema. At baseline patient ambulates with a walker. Patient is noncompliant with antihypertensive meds. She denies history of heart failure or cardiac work-up. Patient has no history of smoking, alcohol or drug abuse. Patient not . no children. Allergic to penicillin. Patient alert, awake and presently resting on room air. O2 saturation 97%. Chest xray reported cardiomegaly and pulmonary venous hypertension. Venous doppler studies of legs reported no sonographic evidence of DVT in either legs. Past History Past Medical History: hypertension (since age 13.), other (Morbid obesity for long time.hx. of asthma as child.). denies: CAD, diabetes, ESRD, stroke Past Surgical History: No surgical history Social history: lives with family (Sister) Family history: no significant family history Medications and Allergies Allergies Allergy/AdvReac Type Severity Reaction Status Date / Time Penicillins Allergy Hives Verified 04/03/19 00:37 Home Medications Medication Instructions Recorded Confirmed Last Taken Type Acetaminophen [Tylenol Arthritis] 650 mg PO Q6HR PRN #30 tablet.er 01/19/18 04/03/19 Unknown Rx Ibuprofen [Motrin] 600 mg PO Q8H PRN #30 tablet 01/19/18 04/03/19 Unknown Rx Active Meds: Active Medications Acetaminophen (Tylenol) 650 mg PO Q4H PRN PRN Reason: Pain MILD(1-3)/Fever >100.5/ROY Albuterol (Proventil) 2.5 mg IH Q3HRT PRN PRN Reason: Shortness Of Breath Aspirin (Baby Aspirin) 81 mg PO QDAY KALE Last Admin: 04/04/19 12:44 Dose: 81 mg Documented by: Carvedilol (Coreg) 3.125 mg PO BID [facility] Last Admin: 04/04/19 12:44 Dose: 3.125 mg Documented by: Diphenhydramine HCl (Benadryl) 25 mg PO Q6H PRN PRN Reason: Itching Furosemide (Lasix) 40 mg IV 0600,1800 [facility] Last Admin: 04/04/19 06:12 Dose: 40 mg Documented by: Heparin Sodium (Porcine) (Heparin) 5,000 unit SUB-Q Q12HR [facility] Last Admin: 04/04/19 12:46 Dose: 5,000 unit Documented by: Hydralazine HCl (Apresoline) 10 mg IV Q4HR PRN PRN Reason: Blood Pressure Lisinopril (Zestril) 20 mg PO QDAY [facility] Last Admin: 04/04/19 12:46 Dose: 20 mg Documented by: Ondansetron HCl (Zofran) 4 mg IV Q8H PRN PRN Reason: Nausea And Vomiting Oxycodone/Acetaminophen (Percocet 5/325) 1 tab PO Q6H PRN PRN Reason: Pain, Moderate (4-6) Sodium Chloride (Sodium Chloride Flush Syringe 10 Ml) 10 ml IV BID [facility] Last Admin: 04/04/19 12:46 Dose: 10 ml Documented by: Sodium Chloride (Sodium Chloride Flush Syringe 10 Ml) 10 ml IV PRN PRN PRN Reason: LINE FLUSH Review of Systems All systems: negative Physical Examination Vital signs: Vital Signs Pulse Resp Pulse Ox 66 18 100 04/02/19 23:42 04/02/19 23:42 04/02/19 23:42 General appearance: no acute distress, alert, other (Morbidly Obese.) Eyes: non-icteric ENT: oropharynx moist Ascultation: Bilateral: diminished breath sounds Cardiovascular: regular rate and rhythm Gastrointestinal: normoactive bowel sounds, soft, non-tender Integumentary: other (Stasis dermatitis.) Extremities: no cyanosis, edema Musculoskeletal: no deformities Gait: other (Unable to assess now.) normal mental status, non-focal exam, pupils equal and round mood appropriate Results - Laboratory Findings CBC and BMP: 04/04/19 07:25 01/20/20 07:18 PT/INR, D-dimer PT 13.6 Sec. (12.2-14.9) 04/03/19 01:32 INR 1.03 (0.87-1.13) 04/03/19 01:32 Abnormal lab findings: Abnormal Labs 04/03/19 04/03/19 04/04/19 01:32 01:32 07:18 RBC 3.47 L [place] % (Auto) 8.2 H Eos % (Auto) 4.4 H BUN 18 H Glucose 136 H 121 H ALT 6 L NT-Pro-B Natriuret Pep 1107 H Albumin 3.4 L 04/04/19 07:25 RBC 3.47 L [place] % (Auto) 8.2 H Eos % (Auto) 4.7 H BUN Glucose ALT NT-Pro-B Natriuret Pep Albumin - Diagnostic Findings Chest x-ray: report reviewed (REPORTED CARDIOMEGALY AND PULMONARY VENOUS HYPERTENSION.), image reviewed U/S of Legs: report reviewed (NO SONOGRAPHIC EVIDENCE OF DVT.), image reviewed Assessment and Plan 63-year-old -[place] female with history of hypertension and obesity who presents to [facility] ED with complaints of progressively worsening bilateral lower extremity edema. Patient states that she is on able to ambulate due to worsening bilateral lower extremity edema. Specifically patient is concerned about right lower extremity which is worse than the left. Right lower extremity edema goes all the way up to her thigh. Patient states that she noticed that her edema has been getting worse since February 2019. She decided to come in today for further evaluation treatment because she is unable to ambulate because of her worsening edema. At baseline patient ambulates with a walker. Patient is noncompliant with antihypertensive meds. She denies history of heart failure or cardiac work-up. Patient has no history of smoking, alcohol or drug abuse. Patient not . no children. Allergic to penicillin. Patient alert, awake and presently resting on room air. O2 saturation 97%. Chest xray reported cardiomegaly and pulmonary venous hypertension. Venous doppler studies of legs reported no sonographic evidence of DVT in either legs. - Patient Problems (1) Shortness of breath Current Visit: Yes Status: Acute Plan to address problem: Likely from CHF and Morbid Obesity (2) New onset of congestive heart failure Current Visit: Yes Status: Acute Plan to address problem: Management as per cardiology. (3) Peripheral edema Current Visit: Yes Status: Acute Plan to address problem: Patient is on lasix. Patient is on S/C Heparin
--- NOTE | 2019-04-04 16:26 | Progress Note ---
Assessment and Plan 63-year-old -[place] female, morbidly obese but long-term, activities are limited because of balance problems and uses a cane and walker. She is having increasing leg edema particularly right leg more than left leg 2 weeks. Amaury c/o weakness of right lower extremity. This is a chronic issue, was evaluated at [facility] in 2015 with similar symptoms of weakness in the right lower extremity and increasing leg swelling. Patient cannot walk much. He gets short of breath. Has long-standing essential hypertension, no diabetes or known history of hyperlipidemia. Patient denies any chest pain, no palpitations.No previous cardiac history, no history of OR,CHF orcardiac arhthmia in past.EKG is showing S.R,is unremarkable,cardiac troponin's x 2 are unremarkable. Patient used to be followed by [facility],recently chaged to different primary care. Her gait is unsteady and she cannot walk much. Patient's symptoms appear to be chronic. Etiology of her symptoms is not clear. Patient has 1-2+ edema of the lower extremities in addition to being morbidly obese. We will get a venous flow studies to rule out any underlying deep vein thrombosis. Also patient says that she cannot walk few steps without getting shortness of breath. Also recommended a CT and he'll rule out any underlying pulmonary embolus. Cardiac Status appears to be stable. Chest x-ray did not show obvious congestive heart failure. Evaluated BNP was noted. We will check the echocardiogram for LV systolic and diastolic function and right-sided chamber sizes. Patient is morbidly obese with occasional wheezing. Underlying lung disease need to be reevaluated. Also patient has a history of asthma as child. Agree with diuresis. await results of echocardiogram and CTA of the chest and Doppler venous flow studies of the lower extremities. Patient appears comfortable at this time. Presently etiology of her SOB and leg edema is not clear. >CTA was not performed,no evidence of DVT.Echo showed LVH with normal LV systolic function,severe pulmonary hypertension noted,continue diuretics,etiology of pulmonary hypertension,?chronic hypoxemia,troponins are unremarkable.Continue diuretics. - Patient Problems (1) New onset of congestive heart failure Current Visit: Yes Status: Acute (2) Peripheral edema Current Visit: Yes Status: Acute (3) Shortness of breath Current Visit: Yes Status: Acute Subjective Date of service: 04/04/19 Interval history: Still c/o leg swelling and sob.No chest pain. Objective Vital Signs Temp Pulse Resp BP Pulse Ox 04/04/19 12:46 70 04/04/19 12:44 70 04/04/19 11:50 98.5 F 67 20 155/50 98 04/04/19 08:34 98.1 F 67 22 160/58 99 04/04/19 04:30 98.0 F 69 18 160/61 94 04/04/19 02:00 70 04/03/19 22:55 98.0 F 71 18 157/49 97 04/03/19 19:36 98.5 F 74 18 136/42 96 - Physical Examination General: No Apparent Distress, Other (Morbidly obese.) Neck: Positive: neck supple, trachea midline Cardiac: Positive: Reg Rate and Rhythm Lungs: Positive: Decreased Breath Sounds Neuro: Positive: Grossly Intact Abdomen: Positive: Soft Skin: Negative: Rash Extremities: Present: lower extr. pulses, +2 Edema - Labs and Meds CBC 04/04/19 Range/Units 07:25 WBC 6.6 (4.5-11.0) K/mm3 RBC 3.47 L (3.65-5.03) M/mm3 Hgb 10.4 (10.1-14.3) gm/dl Hct 31.3 (30.3-42.9) % Plt Count 207 (140-440) K/mm3 Lymph # 1.8 (1.2-5.4) K/mm3 [place] # 0.5 (0.0-0.8) K/mm3 Eos # 0.3 (0.0-0.4) K/mm3 Baso # 0.0 (0.0-0.1) K/mm3 Comprehensive Metabolic Panel 04/04/19 Range/Units 07:18 Sodium 140 (137-145) mmol/L Potassium 4.3 (3.6-5.0) mmol/L Chloride 103.0 (98-107) mmol/L Carbon Dioxide 24 (22-30) mmol/L BUN 16 (7-17) mg/dL Creatinine 1.1 (0.7-1.2) mg/dL Glucose 121 H (65-100) mg/dL Calcium 8.9 (8.4-10.2) mg/dL - EKG Sinus rhythms and dysrhythmias: sinus rhythm (S.R,WNL.)
[2019-04-05] MEDS: FUROSEMIDE 40 MG/4 ML INJ IV SCH ×2 (07:10→19:22)
--- NOTE | 2019-04-05 10:18 | Discharge Summary ---
Providers - Providers Date of Admission: 04/03/19 02:59 Attending physician: YAMILETH BERNAL MD 04/03/19 02:59 Consult to Physician [CONS] Routine Comment: Consulting Provider: IAM LAWLER Physician Instructions: Reason For Exam: new onset chf 04/03/19 04:06 Occupational Therapy Evaluate and Treat [CONS] Routine Comment: Reason For Exam: Debility Physical Therapy Evaluation and Treat [CONS] Routine Comment: Reason For Exam: Debility 04/03/19 04:16 Consult to Dietitian/Nutrition [CONS] Routine Physician Instructions: Reason For Exam: Reason for Consult: Malnutrition 04/03/19 13:59 Physical Therapy Evaluation and Treat [CONS] Routine Comment: Reason For Exam: ataxia 04/04/19 07:46 Consult to Case Management [CONS] Routine Services Needed at Discharge: Home Health Services Notified:: [email or web address] notified 04/04/19 08:16 Consult to Physician [CONS] Routine Comment: Consulting Provider: BELKYS MCCLELLAND Physician Instructions: Reason For Exam: severe pulm htn` 04/05/19 10:08 Consult to Wound/ET Nurse [CONS] Urgent Reason For Exam: wound eval [facility] Hospital course: 63-year-old woman with history of hypertension and obesity. Patient is nonadherent to her blood pressure medications. She has chronic lower extremity edema, however it is worsening since February. Edema has gotten so bad. it is now above her thighs and making difficult for her to walk. Acute diastolic chf Echo shows preserved EF, with severe pulmonary hypertension Diuretics, cardiology input appreciated, meds optimized lower extremity Dopplers neg for DVT Severe pulmonary hypertension demonstrated on echo Pulmonary consult appreciated, op fup Hypertensive urgency Optimized meds Morbid obesity Preventative health counseling performed for 17 minutes, needs outpatient weight loss program Moderate malnutrition Dietitian consult Ambulatory dysfunction Awaiting PT consult DVT prophylaxis; heparin subcu Disposition: TO HOME OR SELFCARE Time spent for discharge: 33 mins Core Measure Documentation - Palliative Care Palliative Care/ Comfort Measures: Not Applicable - Core Measures Any of the following diagnoses?: heart failure - Heart Failure Discharge Requirements MAYELIN/ARB for LVSD if EF <40%: Not Applicable Exam - Physical Exam Narrative exam: General.: Appears well, no distress, morbidly obese HEENT: Moist mucous membranes, extraocular muscles intact, no lymphadenopathy Neck: supple Cardiac: S1-S2 heard Lungs: clear to auscultation bilaterally Abdomen: soft , nontender, nondistended, bowel sounds positive Extremities: trace Bilateral bipedal pitting edema, improved Skin: no rash or lesions Neurologic: no gross focal deficits Psych: calm, and cooperative - Constitutional Vitals: Temp Pulse Resp BP Pulse Ox 98.1 F 65 20 158/55 97 04/05/19 07:34 04/05/19 07:34 04/05/19 07:34 04/05/19 07:34 04/05/19 07:34 Plan Follow up with: [facility] VORAHUGH [facility] MD ROCIO [Primary Care Provider] - 3-5 Days Prescriptions: carvediloL [Coreg] 3.125 mg PO BID #90 tablet Furosemide [Lasix TAB] 40 mg PO BID #60 tablet lisinopriL [Zestril TAB] 20 mg PO QDAY #30 tablet
[2019-04-05] MEDS: carvediloL 3.125 MG TAB PO SCH ×2 (11:00→22:03)
[2019-04-05 11:23] LABS: ABG HCO3 27.8 mmol/L (20.0-26.0); ABG Methemoglobin 0.6 % (0.0-1.5); ABG Oxygen Saturation 98.5 % (95.0-99.0); ABG PCO2 38.9 mm Hg; ABG PH 7.471 pH Units (7.350-7.450)
--- NOTE | 2019-04-05 12:15 | Progress Note ---
Assessment and Plan Currently stable cardiac status. Cont present cardiac management. Pt is noted to have severe pulmonary HTN with etiology of pulmonary hypertension unknown, ?chronic hypoxemia, pulmonary is following. Pt unable to complete CT scan due to body habitus. BLE dopplers negative for DVT. The patient has been seen in conjunction with Dr. Livingston who agrees with the assessment and plan of care. - Patient Problems (1) Acute heart failure with preserved ejection fraction Current Visit: Yes Status: Acute (2) Severe pulmonary arterial systolic hypertension Current Visit: Yes Status: Chronic (3) HTN (hypertension) Current Visit: Yes Status: Chronic (4) Morbid obesity Current Visit: Yes Status: Chronic Subjective Date of service: 04/05/19 Principal diagnosis: HF Interval history: pt resting in bed, states SOB and BLE swelling improving. in SR on tele. Objective Last Vital Signs Temp 98.1 F 04/05/19 07:34 Pulse 63 04/05/19 11:14 Resp 20 04/05/19 11:14 BP 169/66 04/05/19 11:14 Pulse Ox 96 04/05/19 11:14 - Physical Examination General: No Apparent Distress, Other (Morbidly obese.) Neck: Positive: neck supple, trachea midline Cardiac: Positive: Reg Rate and Rhythm, S1/S2 Lungs: Positive: Decreased Breath Sounds Neuro: Positive: Grossly Intact Abdomen: Positive: Soft Skin: Negative: Rash Extremities: Present: lower extr. pulses, +2 Edema - Imaging and Cardiology EKG: report reviewed, image reviewed Echo: report reviewed - Telemetry EKG Rhythm: Sinus Rhythm - EKG Sinus rhythms and dysrhythmias: sinus rhythm (S.R,WNL.)
--- NOTE | 2019-04-05 15:36 | Progress Note ---
Assessment and Plan Assessment and plan: 63-year-old woman with history of hypertension and obesity. Patient is nonadherent to her blood pressure medications. She has chronic lower extremity edema, however it is worsening since February. Edema has gotten so bad. it is now above her thighs and making difficult for her to walk. Acute diastolic chf Echo shows preserved EF, with severe pulmonary hypertension Diuretics, cardiology input appreciated, meds optimized lower extremity Dopplers neg for DVT Severe pulmonary hypertension demonstrated on echo Pulmonary consult appreciated, op fup Hypertensive urgency Optimized meds Morbid obesity Preventative health counseling performed for 17 minutes, needs outpatient weight loss program Moderate malnutrition Dietitian consult Ambulatory dysfunction pt consult appreciated, for MAKI dvt ppx- chemical History Interval history: Review of systems Constitutional: No fevers, no malaise, no joint pains CVS: No chest pain, no orthopnea, admits to improvement in lower extremity edema GI: No abdominal pain, no diarrhea, no vomiting, no constipation Respiratory: , no wheezing, no coughing Hospitalist Physical - Physical exam Narrative exam: General.: Appears well, no distress, morbidly obese HEENT: Moist mucous membranes, extraocular muscles intact, no lymphadenopathy Neck: supple Cardiac: S1-S2 heard Lungs: clear to auscultation bilaterally Abdomen: soft , nontender, nondistended, bowel sounds positive Extremities: trace Bilateral bipedal pitting edema, improved Skin: no rash or lesions Neurologic: no gross focal deficits Psych: calm, and cooperative - Constitutional Vitals: Temp Pulse Resp BP Pulse Ox 98.1 F 63 20 169/66 96 04/05/19 07:34 04/05/19 11:14 04/05/19 11:14 04/05/19 11:14 04/05/19 11:14 General appearance: Present: obese (Morbidly obese) MARK score - Mark Score Age > 65: (0) No Aspirin use within the Past 7 Days: (0) No 3 or more CAD Risk Factors: (0) No 2 or more Angina events in past 24 hrs: (0) No Known CAD with more than 50% Stenosis: (0) No Elevated Cardiac Markers: (0) No ST Deviation Greater than 0.5mm: (0) No MARK Score: 0 Results - Labs CBC & Chem 7: 04/04/19 07:25 04/04/19 07:18 Labs: Laboratory Last Values WBC 6.6 K/mm3 (4.5-11.0) 04/04/19 07:25 RBC 3.47 M/mm3 (3.65-5.03) L 04/04/19 07:25 Hgb 10.4 gm/dl (10.1-14.3) 04/04/19 07:25 Hct 31.3 % (30.3-42.9) 04/04/19 07:25 MCV 90 fl (79-97) 04/04/19 07:25 MCH 30 pg (28-32) 04/04/19 07:25 MCHC 33 % (30-34) 04/04/19 07:25 RDW 14.5 % (13.2-15.2) 04/04/19 07:25 Plt Count 207 K/mm3 (140-440) 04/04/19 07:25 Lymph % (Auto) 27.4 % (13.4-35.0) 04/04/19 07:25 Riley % (Auto) 8.2 % (0.0-7.3) H 04/04/19 07:25 Eos % (Auto) 4.7 % (0.0-4.3) H 04/04/19 07:25 Baso % (Auto) 0.6 % (0.0-1.8) 04/04/19 07:25 Lymph # 1.8 K/mm3 (1.2-5.4) 04/04/19 07:25 Riley # 0.5 K/mm3 (0.0-0.8) 04/04/19 07:25 Eos # 0.3 K/mm3 (0.0-0.4) 04/04/19 07:25 Baso # 0.0 K/mm3 (0.0-0.1) 04/04/19 07:25 Seg Neutrophils % 59.1 % (40.0-70.0) 04/04/19 07:25 Seg Neutrophils # 3.9 K/mm3 (1.8-7.7) 04/04/19 07:25 PT 13.6 Sec. (12.2-14.9) 04/03/19 01:32 INR 1.03 (0.87-1.13) 04/03/19 01:32 ABG pH 7.471 pH Units (7.350-7.450) H 04/05/19 09:55 ABG pCO2 38.9 mm Hg 04/05/19 09:55 ABG pO2 125.0 mm Hg (80.0-90.0) H 04/05/19 09:55 ABG HCO3 27.8 mmol/L (20.0-26.0) H 04/05/19 09:55 ABG O2 Saturation 98.5 % (95.0-99.0) 04/05/19 09:55 ABG O2 Content 22.8 (0.0-44) 04/05/19 09:55 ABG Base Excess 4.0 mmol/L (-2.0-3.0) H 04/05/19 09:55 ABG Hemoglobin 16.6 gm/dl (12.0-16.0) H 04/05/19 09:55 ABG Carboxyhemoglobin 1.3 % (0.0-5.0) 04/05/19 09:55 ABG Methemoglobin 0.6 % (0.0-1.5) 04/05/19 09:55 Oxyhemoglobin 96.7 % (95.0-99.0) 04/05/19 09:55 FiO2 21 % 04/05/19 09:55 Sodium 140 mmol/L (137-145) 04/04/19 07:18 Potassium 4.3 mmol/L (3.6-5.0) 04/04/19 07:18 Chloride 103.0 mmol/L (98-107) 04/04/19 07:18 Carbon Dioxide 24 mmol/L (22-30) 04/04/19 07:18 Anion Gap 17 mmol/L 04/04/19 07:18 BUN 16 mg/dL (7-17) 04/04/19 07:18 Creatinine 1.1 mg/dL (0.7-1.2) 04/04/19 07:18 Estimated GFR > 60 ml/min 04/04/19 07:18 BUN/Creatinine Ratio 15 % 04/04/19 07:18 Glucose 121 mg/dL (65-100) H 04/04/19 07:18 Calcium 8.9 mg/dL (8.4-10.2) 04/04/19 07:18 Total Bilirubin 0.30 mg/dL (0.1-1.2) 04/03/19 01:32 AST 13 units/L (5-40) 04/03/19 01:32 ALT 6 units/L (7-56) L 04/03/19 01:32 Alkaline Phosphatase 66 units/L (35-129) 04/03/19 01:32 Total Creatine Kinase 50 units/L (30-135) 04/03/19 01:32 CK-MB (CK-2) < 1.0 ng/mL (0.0-4.0) 04/03/19 01:32 CK-MB (CK-2) Rel Index 2.0 (0-4) 04/03/19 01:32 Troponin T < 0.010 ng/mL (0.00-0.029) 04/03/19 07:55 NT-Pro-B Natriuret Pep 1107 pg/mL (0-900) H 04/03/19 01:32 Total Protein 7.5 g/dL (6.3-8.2) 04/03/19 01:32 Albumin 3.4 g/dL (3.9-5) L 04/03/19 01:32 Albumin/Globulin Ratio 0.8 % 04/03/19 01:32 TSH 3.250 mlU/mL (0.270-4.200) 04/04/19 20:16 Thyroxine (T4) 6.4 ug/dL (4.0-12.0) 04/04/19 20:16 Active Medications - Current Medications Current Medications: Generic Name Dose Route Start Last Admin Trade Name Freq PRN Reason Stop Dose Admin Acetaminophen 650 mg 04/03/19 02:59 Tylenol PO Q4H PRN Pain MILD(1-3)/Fever >100.5/ROY Albuterol 2.5 mg 04/03/19 02:59 Proventil IH Q3HRT PRN Shortness Of Breath Aspirin 81 mg 04/03/19 10:00 04/04/19 12:44 Baby Aspirin PO 81 mg QDAY KALE Administration Carvedilol 3.125 mg 04/03/19 10:00 04/04/19 22:11 Coreg PO 3.125 mg BID KALE Administration Diphenhydramine HCl 25 mg 04/03/19 22:10 Benadryl PO Q6H PRN Itching Furosemide 40 mg 04/03/19 18:00 04/05/19 07:10 Lasix IV 40 mg 0600,1800 KALE Administration Heparin Sodium (Porcine) 5,000 unit 04/03/19 10:00 04/04/19 22:11 Heparin SUB-Q 5,000 unit Q12HR KALE Administration Hydralazine HCl 10 mg 04/03/19 04:15 Apresoline IV Q4HR PRN Blood Pressure Lisinopril 20 mg 04/03/19 10:00 04/04/19 12:46 Zestril PO 20 mg QDAY KALE Administration Ondansetron HCl 4 mg 04/03/19 02:59 Zofran IV Q8H PRN Nausea And Vomiting Oxycodone/Acetaminophen 1 tab 04/03/19 03:46 Percocet 5/325 PO Q6H PRN Pain, Moderate (4-6) Sodium Chloride 10 ml 04/03/19 10:00 04/04/19 22:12 Sodium Chloride Flush Syringe 10 Ml IV 10 ml BID KALE Administration Sodium Chloride 10 ml 04/03/19 02:59 Sodium Chloride Flush Syringe 10 Ml IV PRN PRN LINE FLUSH Nutrition/Malnutrition Assess - Dietary Evaluation Nutrition/Malnutrition Findings: Nutrition Notes Start: 04/04/19 12:58 Freq: Status: Active Protocol: Document 04/04/19 12:58 LM (Rec: 04/04/19 13:09 LM [id number]) Nutrition Notes Need for Assessment generated from: MD Order,MST,Education Initial or Follow up Brief Note Current Diagnosis Hypertension,Heart Failure Other Pertinent Diagnosis bilat LE edema Current Diet Cardiac/consistent cho Labs/Tests BG 121 Pertinent Medications Lasix Height 5 ft 5 in Weight 190 kg Usual Body Weight 90.9 kg [place] Body Weight (kg) 56.81 BMI 69.7 Weight change and time frame 6.4% wt loss in 5 months (most likely fluid wt) Subjective/Other Information MD consult for malnutrition. Pt ate most of her breakfast this AM and stated she ate well [employer]. Pt stated she weighed 450 lb in September and 421 lb in February. Pt stated she weighed 200 lb in 2009. Pt beleives weight gain since 2009 is a combination of fluid and eating more. Provided nutrition education for pt. Discussed eating meals at home more and avoiding foods high in Na. Burn Absent Trauma Absent GI Symptoms None Current % PO Good (75-100%) Minimum of two criteria No Fluid Accumulation Moderate to Severe (severe) #1 Nutrition Diagnosis Food and nutrition-related knowledge deficit Etiology No prior diet education for hypertension and general healthy eating As Evidenced by Signs and Symptoms pt interested in receiving diet education Nutrition Intervention Teaching Recipient Patient Learning Readiness Good Teaching Methods Discussion,Handout Education Handouts Provided Hypertension and general healthy eating Barriers to Learning Motivation RD phone number provided Yes Patient aware of follow up options Yes Revisit per MD consult or patient Sign Off request:
--- NOTE | 2019-04-05 17:02 | Progress Note ---
Assessment and Plan Patient alert and awake. Patient says breathing is alright. Patient is on room air. O2 saturation of 100%. Patient says leg swelling is much better. - Patient Problems (1) Shortness of breath Current Visit: Yes Status: Acute Plan to address problem: Likely from CHF and Morbid Obesity (2) New onset of congestive heart failure Current Visit: Yes Status: Acute Plan to address problem: Management as per cardiology. (3) Peripheral edema Current Visit: Yes Status: Acute Plan to address problem: Patient is on lasix. Patient is on S/C Heparin Subjective Date of service: 04/05/19 Principal diagnosis: HF Interval history: Patient alert and awake. Patient says breathing is alright. Patient is on room air. O2 saturation of 100%. Patient says leg swelling is much better. Objective Vital Signs - 12hr 04/05/19 04/05/19 04/05/19 07:34 11:14 15:57 Temperature 98.1 F 98.2 F Pulse Rate 65 63 68 Respiratory 20 20 20 Rate Blood Pressure 158/55 169/66 Blood Pressure 170/68 [Left] O2 Sat by Pulse 97 96 100 Oximetry Constitutional: no acute distress, alert, other (Morbidly Obese.) Eyes: non-icteric ENT: oropharynx moist Ascultation: Bilateral: diminished breath sounds Cardiovascular: regular rate and rhythm Gastrointestinal: normoactive bowel sounds, soft, non-tender Integumentary: other (Stasis dermatitis.) Extremities: no cyanosis, edema Neurologic: normal mental status, non-focal exam, pupils equal and round Psychiatric: mood appropriate CBC and BMP: 04/04/19 07:25 04/04/19 07:18 ABG, PT/INR, D-dimer: ABG ABG pH 7.471 pH Units (7.350-7.450) H 04/05/19 09:55 ABG pCO2 38.9 mm Hg 04/05/19 09:55 ABG pO2 125.0 mm Hg (80.0-90.0) H 04/05/19 09:55 ABG O2 Saturation 98.5 % (95.0-99.0) 04/05/19 09:55 PT/INR, D-dimer PT 13.6 Sec. (12.2-14.9) 04/03/19 01:32 INR 1.03 (0.87-1.13) 04/03/19 01:32 Abnormal lab findings: Abnormal Labs 04/03/19 04/03/19 04/04/19 01:32 01:32 07:18 RBC 3.47 L [place] % (Auto) 8.2 H Eos % (Auto) 4.4 H ABG pH ABG pO2 ABG HCO3 ABG Base Excess ABG Hemoglobin BUN 18 H Glucose 136 H 121 H ALT 6 L NT-Pro-B Natriuret Pep 1107 H Albumin 3.4 L 04/04/19 04/05/19 07:25 09:55 RBC 3.47 L [place] % (Auto) 8.2 H Eos % (Auto) 4.7 H ABG pH 7.471 H ABG pO2 125.0 H ABG HCO3 27.8 H ABG Base Excess 4.0 H ABG Hemoglobin 16.6 H BUN Glucose ALT NT-Pro-B Natriuret Pep Albumin
[2019-04-05] MEDS: HEPARIN 5,000 UNIT/1 ML VIAL SUB-Q SCH ×2 (19:08→22:03)
[2019-04-05] MEDS: LISINOPRIL 20 MG TAB PO SCH (19:21)
[2019-04-05] MEDS: ASPIRIN 81 MG TAB CHEW PO SCH (19:21)
[2019-04-06 04:44] VITALS: BP 151/55
[2019-04-06] MEDS: FUROSEMIDE 40 MG/4 ML INJ IV SCH (06:22)
[2019-04-06] MEDS: carvediloL 3.125 MG TAB PO SCH (10:53)
[2019-04-06] MEDS: HEPARIN 5,000 UNIT/1 ML VIAL SUB-Q SCH (10:53)
[2019-04-06] MEDS: ASPIRIN 81 MG TAB CHEW PO SCH (10:53)
[2019-04-06] MEDS: LISINOPRIL 20 MG TAB PO SCH (10:53)
--- NOTE | 2019-04-06 11:00 | Progress Note ---
Assessment and Plan Patient alert and awake. Patient says breathing is better but still has cough. Patient is on room air. O2 saturation of 95%. Patient says leg swelling is much better. ABGs 04/05/2019 on room air pH 7.47 pCO2 39, pO2 125, HCO3 27.8, O2 saturation 99% Recommend sleep study as an outpatient - Patient Problems (1) Shortness of breath Current Visit: Yes Status: Acute Plan to address problem: Likely from CHF and Morbid Obesity (2) New onset of congestive heart failure Current Visit: Yes Status: Acute Plan to address problem: Management as per cardiology. (3) Peripheral edema Current Visit: Yes Status: Acute Plan to address problem: Patient is on lasix. Patient is on S/C Heparin Subjective Date of service: 04/06/19 Principal diagnosis: HF Interval history: Patient alert and awake. Patient says breathing is better but still has cough. Patient is on room air. O2 saturation of 95%. Patient says leg swelling is much better. ABGs 04/05/2019 on room air pH 7.47 pCO2 39, pO2 125, HCO3 27.8, O2 saturation 99% Recommend sleep study as an outpatient Objective Vital Signs - 12hr 04/05/19 04/06/19 04/06/19 23:33 02:00 03:52 Temperature 98.3 F 98.0 F Pulse Rate 74 80 70 Respiratory 19 18 Rate Blood Pressure 131/40 151/55 O2 Sat by Pulse 95 95 Oximetry 04/06/19 08:00 Temperature Pulse Rate 70 Respiratory Rate Blood Pressure O2 Sat by Pulse Oximetry Constitutional: no acute distress, alert, other (Morbidly Obese.) Eyes: non-icteric ENT: oropharynx moist Ascultation: Bilateral: diminished breath sounds Cardiovascular: regular rate and rhythm Gastrointestinal: normoactive bowel sounds, soft, non-tender Integumentary: other (Stasis dermatitis.) Extremities: no cyanosis, edema Neurologic: normal mental status, non-focal exam, pupils equal and round Psychiatric: mood appropriate CBC and BMP: 04/04/19 07:25 04/04/19 07:18 ABG, PT/INR, D-dimer: ABG ABG pH 7.471 pH Units (7.350-7.450) H 04/05/19 09:55 ABG pCO2 38.9 mm Hg 04/05/19 09:55 ABG pO2 125.0 mm Hg (80.0-90.0) H 04/05/19 09:55 ABG O2 Saturation 98.5 % (95.0-99.0) 04/05/19 09:55 PT/INR, D-dimer PT 13.6 Sec. (12.2-14.9) 04/03/19 01:32 INR 1.03 (0.87-1.13) 04/03/19 01:32 Abnormal lab findings: Abnormal Labs 04/03/19 04/03/19 04/04/19 01:32 01:32 07:18 RBC 3.47 L [place] % (Auto) 8.2 H Eos % (Auto) 4.4 H ABG pH ABG pO2 ABG HCO3 ABG Base Excess ABG Hemoglobin BUN 18 H Glucose 136 H 121 H ALT 6 L NT-Pro-B Natriuret Pep 1107 H Albumin 3.4 L 04/04/19 04/05/19 07:25 09:55 RBC 3.47 L [place] % (Auto) 8.2 H Eos % (Auto) 4.7 H ABG pH 7.471 H ABG pO2 125.0 H ABG HCO3 27.8 H ABG Base Excess 4.0 H ABG Hemoglobin 16.6 H BUN Glucose ALT NT-Pro-B Natriuret Pep Albumin
--- NOTE | 2019-04-06 11:02 | Progress Note ---
Assessment and Plan Currently stable cardiac status. Pt appears to be nearing. convert IV lasix to PO lasix. Pt is noted to have severe pulmonary HTN with etiology of pulmonary hypertension unknown, ?chronic hypoxemia, pulmonary is following. Pt unable to complete CT scan due to body habitus. BLE dopplers negative for DVT. Per pulmonary, recommend sleep study as an outpatient Nothing further to add from cardiac perspective at this time. Will sign off. Recommend pt follow up in our office with Dr. Steel within 3-5 days of discharge ([phone]). The patient has been seen in conjunction with Dr. Livingston who agrees with the assessment and plan of care. - Patient Problems (1) Acute heart failure with preserved ejection fraction Current Visit: Yes Status: Acute (2) Severe pulmonary arterial systolic hypertension Current Visit: Yes Status: Chronic (3) HTN (hypertension) Current Visit: Yes Status: Chronic (4) Morbid obesity Current Visit: Yes Status: Chronic Subjective Date of service: 04/06/19 Principal diagnosis: HF Interval history: pt resting in bed, states SOB and BLE swelling improving. in SR on tele. Objective Last Vital Signs Temp 98.0 F 04/06/19 03:52 Pulse 70 04/06/19 08:00 Resp 18 04/06/19 03:52 BP 151/55 04/06/19 03:52 Pulse Ox 95 04/06/19 03:52 - Physical Examination General: No Apparent Distress, Other (Morbidly obese.) Neck: Positive: neck supple, trachea midline Cardiac: Positive: Reg Rate and Rhythm, S1/S2 Lungs: Positive: Decreased Breath Sounds Neuro: Positive: Grossly Intact Abdomen: Positive: Soft Skin: Negative: Rash Extremities: Present: lower extr. pulses, +2 Edema - Imaging and Cardiology EKG: report reviewed, image reviewed Echo: report reviewed - EKG Sinus rhythms and dysrhythmias: sinus rhythm (S.R,WNL.)
--- NOTE | 2019-04-06 11:20 | Discharge Summary ---
Providers - Providers Date of Admission: 04/03/19 02:59 Attending physician: YAMILETH BERNAL MD 04/03/19 02:59 Consult to Physician [CONS] Routine Comment: Consulting Provider: IAM LAWLRE Physician Instructions: Reason For Exam: new onset chf 04/03/19 04:06 Occupational Therapy Evaluate and Treat [CONS] Routine Comment: Reason For Exam: Debility Physical Therapy Evaluation and Treat [CONS] Routine Comment: Reason For Exam: Debility 04/03/19 04:16 Consult to Dietitian/Nutrition [CONS] Routine Physician Instructions: Reason For Exam: Reason for Consult: Malnutrition 04/03/19 13:59 Physical Therapy Evaluation and Treat [CONS] Routine Comment: Reason For Exam: ataxia 04/04/19 07:46 Consult to Case Management [CONS] Routine Services Needed at Discharge: Home Health Services Notified:: [email or web address] notified 04/04/19 08:16 Consult to Physician [CONS] Routine Comment: Consulting Provider: BELKYS MCCLELLAND Physician Instructions: Reason For Exam: severe pulm htn` 04/05/19 10:08 Consult to Wound/ET Nurse [CONS] Urgent Reason For Exam: wound eval [facility] Condition: Fair Hospital course: 63-year-old woman with history of hypertension and obesity. Patient is nonadherent to her blood pressure medications. She has chronic lower extremity edema, however it is worsening since February. Edema has gotten so bad. it is now above her thighs and making difficult for her to walk. Acute diastolic chf Echo shows preserved EF, with severe pulmonary hypertension Diuretics, cardiology input appreciated, meds optimized lower extremity Dopplers neg for DVT Severe pulmonary hypertension demonstrated on echo Pulmonary consult appreciated, op fup Hypertensive urgency Optimized meds Morbid obesity Preventative health counseling performed for 17 minutes, needs outpatient weight loss program Moderate malnutrition Dietitian consult Ambulatory dysfunction pt consult appreciated, they recommended MAKI, but insurance denied as they believe her to be in her usual state of function; home with Preventative health counseling performed for 17 minutes dvt ppx- chemical Disposition: [id number] HOME UNDER HOME HL[facility] Time spent for discharge: 33 mins Core Measure Documentation - Palliative Care Palliative Care/ Comfort Measures: Not Applicable - Core Measures Any of the following diagnoses?: heart failure - Heart Failure Discharge Requirements MAYELIN/ARB for LVSD if EF <40%: Not Applicable Beta yasmeen at discharge: Yes Exam - Constitutional Vitals: Temp Pulse Resp BP Pulse Ox 98.0 F 70 18 151/55 95 04/06/19 03:52 04/06/19 08:00 04/06/19 03:52 04/06/19 03:52 04/06/19 03:52 General appearance: Present: no acute distress, well-nourished, obese - EENT Eyes: Present: PERRL ENT: hearing intact, clear oral mucosa - Neck Neck: Present: supple, normal ROM - Respiratory Respiratory effort: normal Respiratory: bilateral: CTA - Cardiovascular Heart Sounds: Present: S1 & S2. Absent: rub, click - Extremities Extremities: pulses symmetrical Extremity abnormal: edema (mild in LE) Peripheral Pulses: within normal limits - Abdominal General gastrointestinal: Present: soft, non-tender, non-distended, normal bowel sounds Female genitourinary: Present: normal - Integumentary Integumentary: Present: clear, warm, dry - Musculoskeletal Musculoskeletal: gait normal, strength equal bilaterally - Psychiatric Psychiatric: appropriate mood/affect, intact judgment & insight - Neurologic Neurologic: CNII-XII intact, moves all extremities Plan Follow up with: PATRICIA VORA MD [Primary Care Provider] - 3-5 Days Prescriptions: carvediloL [Coreg] 3.125 mg PO BID #90 tablet Furosemide [Lasix TAB] 40 mg PO BID #60 tablet lisinopriL [Zestril TAB] 20 mg PO QDAY #30 tablet
[2019-04-07] MEDS ORDERED: FUROSEMIDE 40 MG TAB PO SCH (06:00)
== END 2019-04-06 16:21 | disposition home health service (06) | DRG 291 ==
LOC: ED 23:24 → 4A 04-03 02:59
PROVIDERS: ADMIT Internal Medicine; ATTEND Internal Medicine
PROC: 4A033R1 Measurement of Arterial Saturation, Peripheral, Percutaneous Approach (ICD-10-PCS; principal; 2019-04-05)
DX: I11.0 Hypertensive heart disease with heart failure (principal); I50.31 Acute diastolic (congestive) heart failure; E44.0 Moderate protein-calorie malnutrition; Z68.44 Body mass index [BMI] 60.0-69.9, adult; I16.0 Hypertensive urgency; I27.21 Secondary pulmonary arterial hypertension; E66.01 Morbid (severe) obesity due to excess calories; J45.909 Unspecified asthma, uncomplicated; R53.81 Other malaise; Z71.3 Dietary counseling and surveillance; Z88.1 Allergy status to other antibiotic agents
CPT/HCPCS: 36415; 36600; 71045; 80048; 80053; 82550; 82553; 82803; 83880; 84436; 84443; 84484; 85025; 85610; 90686; 93005; 93010; 93306; 93970; 94640; 96374; 96375; G0378; J1644; J1940

== ENCOUNTER 2019-05-14 20:52 | Observation (INO) | payer MEDICARE ==
[2019-05-14] MEDS ORDERED: ASPIRIN 325 MG TAB PO ONE (21:18)
[2019-05-14] MEDS ORDERED: ACETAMINOPHEN 500 MG TAB PO ONE (21:30)
[2019-05-14] MEDS ORDERED: FAMOTIDINE 20 MG TAB PO ONE (21:30)
--- NOTE | 2019-05-14 21:46 | XRay Report ---
Chest single view INDICATION: Chest pain IMPRESSION: Mild venous congestion without evidence of cardiomegaly. No large pleural effusion. Signer Name: Kobe Lauren MD Signed: 05/14/2019 9:42 PM Workstation Name: [id number]
[2019-05-14 22:05] LABS: Basophils % (Auto) 0.5 % (0.0-1.8); Eosinophils # (Auto) 0.4 K/mm3 (0.0-0.4); Eosinophils % (Auto) 4.1 % (0.0-4.3); Hematocrit 32.1 % (30.3-42.9); Hemoglobin 10.4 gm/dl (10.1-14.3); Lymphocytes # (Auto) 1.6 K/mm3 (1.2-5.4); Lymphocytes % (Auto) 18.5 % (13.4-35.0); Mean Corpuscular HGB Conc 33 % (30-34); Mean Corpuscular Volume 90 fl (79-97); Monocytes # (Auto) 0.6 K/mm3 (0.0-0.8); Monocytes % (Auto) 6.7 % (0.0-7.3); Platelet Count 230 K/mm3 (140-440); Red Blood Count 3.56 M/mm3 (3.65-5.03); Red Cell Distribution Width 14.7 % (13.2-15.2)
--- NOTE | 2019-05-14 22:13 | Emergency Department Report ---
ED General Adult HPI - General Chief complaint: Chest Pain Stated complaint: CHEST PAIN, SHORT OF BREATH Time Seen by Provider: 05/14/19 21:00 Source: patient, EMS, RN notes reviewed, old records reviewed Mode of arrival: Stretcher Limitations: Physical Limitation - History of Present Illness Initial comments: Patient is a 63-year-old female. I have evaluated the patient in the past. Has a history of morbid obesity, pulmonary hypertension, hypertension, dependent edema/lymphedema. She was seen at this hospital about a month ago for presumed congestive heart failure. She had a negative DVT study. Her echocardiogram showed an unremarkable ejection fraction, and pulmonary hypertension She is brought to the hospital by emergency medical services. She complains of central and left-sided chest wall pain, which is constant, increases with palp ation, decreases with rest, and shortness of breath. She feels like her bilateral lower extremities are swollen. She feels like they are more swollen than baseline. She has poor mobility at baseline. There is no complaint of headache, neck pain, vomiting, Abdominal pain, irritative and or obstructive urinary symptoms. Of note, patient has presented to this department in the past, with similar symptoms, with the exception of left sudden central chest discomfort, which appears to be new when compared to her prior evaluation -: Sudden Location: chest, left, right, lower extremity Severity scale (0 -10): 7 Quality: aching Consistency: constant Improves with: rest Worsens with: movement, other (Palpation, movement) - Related Data Previous Rx's Medication Instructions Recorded Last Taken Type Furosemide [Lasix TAB] 40 mg PO BID #60 tablet 04/05/19 Unknown Rx carvediloL [Coreg] 3.125 mg PO BID #90 tablet 04/05/19 Unknown Rx lisinopriL [Zestril TAB] 20 mg PO QDAY #30 tablet 04/05/19 Unknown Rx Allergies Allergy/AdvReac Type Severity Reaction Status Date / Time Penicillins Allergy Hives Verified 04/03/19 00:37 ED Review of Systems ROS: Stated complaint: CHEST PAIN, SHORT OF BREATH Other details as noted in HPI Constitutional: denies: fever, malaise Eyes: denies: vision change ENT: denies: congestion Respiratory: shortness of breath, wheezing Cardiovascular: chest pain, edema Gastrointestinal: denies: abdominal pain Genitourinary: denies: dysuria Musculoskeletal: arthralgia, myalgia Skin: denies: lesions Neurological: weakness (Chronic) Hematological/Lymphatic: denies: easy bleeding ED Past Medical Hx - Past Medical History Previous Medical History?: Yes Hx Hypertension: Yes Hx Congestive Heart Failure: Yes Additional medical history: obesity - Surgical History Past Surgical History?: No - Social History Smoking Status: Never Smoker - Medications Home Medications: Home Medications Medication Instructions Recorded Confirmed Last Taken Type Furosemide [Lasix TAB] 40 mg PO BID #60 tablet 04/05/19 05/15/19 Unknown Rx carvediloL [Coreg] 3.125 mg PO BID #90 tablet 04/05/19 05/15/19 Unknown Rx lisinopriL [Zestril TAB] 20 mg PO QDAY #30 tablet 04/05/19 05/15/19 Unknown Rx ED Physical Exam - General Limitations: Physical Limitation General appearance: alert, anxious, obese - Head Head exam: Present: atraumatic, normocephalic - Eye Eye exam: Present: normal appearance, EOMI. Absent: nystagmus - ENT ENT exam: Present: normal exam, normal orophraynx, mucous membranes moist, normal external ear exam - Neck Neck exam: Present: normal inspection, full ROM. Absent: tenderness, meningismus - Respiratory Respiratory exam: Present: chest wall tenderness, other (Very faint rhonchi and rales are appreciated.). Absent: respiratory distress - Cardiovascular Cardiovascular Exam: Present: regular rate, normal rhythm, normal heart sounds. Absent: bradycardia, tachycardia, irregular rhythm, systolic murmur, diastolic murmur, rubs, gallop - GI/Abdominal GI/Abdominal exam: Present: soft, normal bowel sounds. Absent: distended, tenderness, guarding, rebound, rigid, pulsatile mass - Extremities Exam Extremities exam: Present: normal inspection, full ROM, pedal edema, other (2+ pulses noted in the bilateral upper and lower extremities. There is obvious lower extremity edema which is tender. There is no redness, pus or streaking). Absent: calf tenderness - Back Exam Back exam: Present: normal inspection, full ROM. Absent: tenderness, CVA tenderness (R), muscle spasm, paraspinal tenderness, vertebral tenderness - Neurological Exam Neurological exam: Present: alert, other (There is no facial droop. The tongue is midline. The extraocular movements are intact bilaterally. There is 5 out of 5 strength in 4 extremities, and sensation is intact to light touch in 4 extremities.). Absent: motor sensory deficit - Psychiatric Psychiatric exam: Present: normal mood, anxious - Skin Skin exam: Present: warm, dry, intact, normal color. Absent: rash ED Course Vital Signs 05/14/19 05/14/19 05/14/19 21:02 21:09 21:15 Temperature Pulse Rate 91 H 88 87 Respiratory 34 H 24 26 H Rate Blood Pressure 197/84 Blood Pressure 197/81 [Left] O2 Sat by Pulse 100 97 97 Oximetry 05/14/19 05/14/19 05/14/19 21:30 21:45 22:01 Temperature Pulse Rate 80 79 81 Respiratory 24 22 22 Rate Blood Pressure 210/89 194/70 194/70 Blood Pressure [Left] O2 Sat by Pulse 100 97 99 Oximetry 05/14/19 05/14/19 05/14/19 22:15 22:31 22:51 Temperature Pulse Rate 78 77 80 Respiratory 21 19 18 Rate Blood Pressure 194/70 194/70 194/70 Blood Pressure [Left] O2 Sat by Pulse 99 95 97 Oximetry 05/14/19 05/14/19 05/14/19 23:00 23:15 23:30 Temperature Pulse Rate 74 67 73 Respiratory 21 17 20 Rate Blood Pressure 208/64 205/67 210/76 Blood Pressure [Left] O2 Sat by Pulse 100 100 100 Oximetry 05/14/19 05/14/19 05/15/19 23:31 23:45 00:00 Temperature Pulse Rate 73 70 80 Respiratory 19 18 17 Rate Blood Pressure 210/76 199/82 195/81 Blood Pressure [Left] O2 Sat by Pulse 100 100 94 Oximetry 05/15/19 05/15/19 05/15/19 00:15 00:31 00:34 Temperature Pulse Rate 73 70 75 Respiratory 20 15 Rate Blood Pressure 195/81 199/82 195/81 Blood Pressure [Left] O2 Sat by Pulse 99 100 Oximetry 05/15/19 05/15/19 05/15/19 00:36 00:45 01:01 Temperature 98 F Pulse Rate 71 66 68 Respiratory 20 16 16 Rate Blood Pressure 199/82 184/71 Blood Pressure 195/81 [Left] O2 Sat by Pulse 100 100 99 Oximetry 05/15/19 05/15/19 05/15/19 01:15 01:31 01:45 Temperature Pulse Rate 71 69 69 Respiratory 15 15 14 Rate Blood Pressure 184/71 184/71 184/71 Blood Pressure [Left] O2 Sat by Pulse 99 99 100 Oximetry 05/15/19 05/15/19 05/15/19 02:00 02:40 07:18 Temperature Pulse Rate 72 Respiratory 17 Rate Blood Pressure 199/81 199/81 215/93 Blood Pressure [Left] O2 Sat by Pulse 100 88 Oximetry 05/15/19 05/15/19 05/15/19 07:21 07:31 07:41 Temperature Pulse Rate 68 66 63 Respiratory 19 21 20 Rate Blood Pressure 215/93 215/93 215/93 Blood Pressure [Left] O2 Sat by Pulse 99 97 98 Oximetry 05/15/19 05/15/19 05/15/19 07:51 08:01 08:05 Temperature 97.6 F Pulse Rate 60 60 61 Respiratory 17 14 18 Rate Blood Pressure 215/93 212/77 Blood Pressure 212/77 [Left] O2 Sat by Pulse 97 97 97 Oximetry 05/15/19 05/15/19 05/15/19 08:11 08:21 08:23 Temperature Pulse Rate 67 66 Respiratory 19 22 20 Rate Blood Pressure 215/93 215/93 Blood Pressure [Left] O2 Sat by Pulse 97 98 Oximetry 05/15/19 05/15/19 05/15/19 08:31 08:41 08:51 Temperature Pulse Rate 61 74 74 Respiratory 17 21 15 Rate Blood Pressure 215/93 215/93 215/93 Blood Pressure [Left] O2 Sat by Pulse 93 98 96 Oximetry 05/15/19 05/15/19 05/15/19 09:01 09:04 09:11 Temperature Pulse Rate 67 66 78 Respiratory 13 21 Rate Blood Pressure 220/78 213/79 213/79 Blood Pressure [Left] O2 Sat by Pulse 99 98 Oximetry 05/15/19 05/15/19 05/15/19 09:19 09:21 09:31 Temperature Pulse Rate 80 86 91 H Respiratory 20 16 17 Rate Blood Pressure 154/84 154/84 Blood Pressure 154/84 [Left] O2 Sat by Pulse 97 98 98 Oximetry 05/15/19 05/15/19 05/15/19 09:41 09:51 10:01 Temperature Pulse Rate 90 87 85 Respiratory 23 17 22 Rate Blood Pressure 154/84 154/84 154/84 Blood Pressure [Left] O2 Sat by Pulse 98 Oximetry - Reevaluation(s) Reevaluation #1: 05/14/19 22:14 Differential diagnosis, including but not limited to: Costochondritis, pneumonia, acute coronary syndrome, dependent edema, chronic pulmonary hypertension, congestive heart failure, pulmonary embolus, DVT Assessment and plan: 63-year-old female with poor mobility at baseline, multiple chronic poorly managed medical conditions, who apparently has not really followed up as an outpatient, presenting with chest wall pain and shortness of breath. Reported temperature 97 degrees. She has tachypnea, which appears to be improving. She is otherwise afebrile with hypertension. Screening laboratory studies ordered. Patient arrived after hours, and we are therefore not able to obtain bilateral lower extremity DVT study, as we do not have a vascular cryptologic technician technical available. Arterial blood gas pending. Patient morbidly obese, and is too large for our CT scanner. She will likely require transfer to another facility for CT scanner. Please note that the patient was evaluated at this hospital but a month ago for similar symptoms, a CT scan was recommended and not performed secondary to the patient's body habitus. Of note, she does have multiple negative DVT studies in the past. Reevaluation #2: 05/14/19 23:40 Arterial blood gas reviewed and appreciated. Patient's outpatient medications have been ordered. Patient exceeds the structural limitations of our CT scanner. Laboratory having technical issues, and we are not able to result the patient's d-dimer. We have reached out to [facility], and discussed the case with Dr. Bacon, who agrees to allow the patient to come to the emergency room to their CT scanner, as it may accommodate the patient's dimensions. Patient's outpatient medications ordered. Discussed plan of care with patient. Depending on CT scan, bed availability and how the patient does, she may remain at [facility], or she may come back to this department. 05/15/19 00:[address] Bacon declines to accept as patient will not fit on hsi ct scanner; its limit is 51 cm and she is 61 cm ther v/q scanner weight limit is 350 lbs; she is nearly 440 transfer to [facility] cancelled Reevaluation #3: 05/15/19 00:56 d/w Dr Salazar at [facility]--> he indicates that the patient exceeds their structural specifications and she cannot fit on the CT scanner. We are now going to try [facility]. In the meantime, the [facility] is going to see if the patient can be accommodated at [facility] Reevaluation #4: 05/15/19 01:16 Dr Aminta Kidd at [facility] has accepted patient to er for ct scan depending on ct scan results, and patient condition and patient preferences, patient may remain at [facility] or return here if she returns here it would be reasonable to admit to diureses, blood pressure control and medical optimization ED Medical Decision Making - Lab Data Result diagrams: 05/14/19 21:38 05/14/19 21:38 Vital Signs 05/14/19 05/14/19 05/14/19 21:02 21:09 21:15 Pulse Rate 91 H 88 87 Respiratory 34 H 24 26 H Rate Blood Pressure 197/84 Blood Pressure 197/81 [Left] O2 Sat by Pulse 100 97 97 Oximetry Lab Results 05/14/19 Range/Units 21:38 WBC 8.7 (4.5-11.0) K/mm3 RBC 3.56 L (3.65-5.03) M/mm3 Hgb 10.4 (10.1-14.3) gm/dl Hct 32.1 (30.3-42.9) % MCV 90 (79-97) fl MCH 29 (28-32) pg MCHC 33 (30-34) % RDW 14.7 (13.2-15.2) % Plt Count 230 (140-440) K/mm3 Lymph % (Auto) 18.5 (13.4-35.0) % [place] % (Auto) 6.7 (0.0-7.3) % Eos % (Auto) 4.1 (0.0-4.3) % Baso % (Auto) 0.5 (0.0-1.8) % Lymph # 1.6 (1.2-5.4) K/mm3 [place] # 0.6 (0.0-0.8) K/mm3 Eos # 0.4 (0.0-0.4) K/mm3 Baso # 0.0 (0.0-0.1) K/mm3 Seg Neutrophils % 70.2 H (40.0-70.0) % Seg Neutrophils # 6.1 (1.8-7.7) K/mm3 - EKG Data 05/14/19 22:11 The EKG today is unchanged from prior EKG. It shows a sinus rhythm, 89 bpm, QTC prolonged, left ventricular hypertrophy, [place] interval within normal limits, not consistent with STEMI. - Radiology Data Radiology results: report reviewed, image reviewed Print Report Referring Physician: CRESCENCIO JEROME Patient Name: SANKET THOMAS Date of : 1955 Sex: Female Report Date: 2019-05-14 Report Status: Finalized Findings [facility] [address] [place] [address] XRay Report Signed Patient: SANKET THOMAS MR#: [id number] : 1955 Acct:[id number] Age/Sex: 63 / F ADM Date: 05/14/19 Loc: ED Attending Dr: Ordering Physician: CRESCENCIO JEROME MD Date of Service: 05/14/19 Procedure(s): XR chest 1V ap Accession Number(s): [id number] cc: CRESCENCIO JEROME MD Fluoro Time In Minutes: Chest single view INDICATION: Chest pain IMPRESSION: Mild venous congestion without evidence of cardiomegaly. No large pleural effusion. Signer Name: Kobe Lauren MD Signed: 05/14/2019 9:42 PM Workstation Name: [id number] Transcribed By: BC Dictated By: Kobe Lauren MD Electronically Authenticated By: Kobe Lauren MD Signed Date/Time: 05/14/192141 DD/ 40 TD/TT: Critical Care Time: Yes Critical care time in (mins) excluding proc time.: 35 Critical care attestation.: If time is entered above; I have spent that time in minutes in the direct care of this critically ill patient, excluding procedure time. ED Disposition Clinical Impression: Peripheral edema, Shortness of breath, Morbid obesity, HTN (hypertension) Chest pain Qualifiers: Chest pain type: unspecified Qualified Code(s): R07.9 - Chest pain, unspecified Disposition: DC/TX-02 SHRT-TRM GEN HOSP IP Is pt being admited?: No Does the pt Need Aspirin: No Condition: Good
[2019-05-14 22:19] LABS: BUN/Creatinine Ratio 16; Blood Urea Nitrogen 19 mg/dL (7-17); Calcium 9.3 mg/dL (8.4-10.2); Hemolysis Index 1
[2019-05-14 22:37] LABS: ABG Base Excess -0.5 mmol/L (-2.0-3.0); ABG HCO3 21.4 mmol/L (20.0-26.0); ABG Methemoglobin 0.6 % (0.0-1.5); ABG Oxygen Saturation 98.9 % (95.0-99.0); ABG PCO2 28.5 mm Hg; ABG PH 7.492 pH Units (7.350-7.450); ABG PO2 145.1 mm Hg (80.0-90.0)
[2019-05-14] MEDS ORDERED: FUROSEMIDE 40 MG TAB PO SCH (23:45)
[2019-05-14 23:51] LABS: INR 1.09 (0.87-1.13)
[2019-05-14 23:52] LABS: Partial Thromboplastin Time 29.2 Sec. (24.2-36.6)
[2019-05-15] MEDS: carvediloL 3.125 MG TAB PO SCH ×3 (00:34→22:20)
[2019-05-15] MEDS ORDERED: ONDANSETRON 4 MG/2 ML INJ IV ONE (07:29)
[2019-05-15] MEDS ORDERED: fentaNYL 100 MCG/2 ML INJ IV ONE (07:29)
--- NOTE | 2019-05-15 08:12 | History and Physical Report ---
History of Present Illness Date of examination: 05/15/19 Date of admission: 05/15/19 Chief complaint: shortness of breath History of present illness: Patient is a 63-year-old female with hx of HTN, Morbid (170 systolic normally at home),history of morbid obesity, pulmonary hypertension, hypertension, dependent edema/lymphedema. She presents to the ED with chest pain, left sided, with shortness of breath, worse with inspiration and not at rest,. Aslo bilateral lower ext swelling. The patient was transferred from our facility to [facility] for imaging studies and ruled out PO. she reports compliances all meds and sometimes uses for with her medication Past History Past Medical History: CAD, hypertension, hyperlipidemia Past Surgical History: No surgical history Social history: IV drug use, full code Family history: no significant family history Medications and Allergies Allergies Allergy/AdvReac Type Severity Reaction Status Date / Time Penicillins Allergy Hives Verified 04/03/19 00:37 Home Medications Medication Instructions Recorded Confirmed Last Taken Type Furosemide [Lasix TAB] 40 mg PO BID #60 tablet 04/05/19 05/15/19 Unknown Rx carvediloL [Coreg] 3.125 mg PO BID #90 tablet 04/05/19 05/15/19 Unknown Rx lisinopriL [Zestril TAB] 20 mg PO QDAY #30 tablet 04/05/19 05/15/19 Unknown Rx Active Meds: Active Medications Carvedilol (Coreg) 3.125 mg PO BID [facility] Last Admin: 05/15/19 00:34 Dose: 3.125 mg Documented by: Furosemide (Lasix) 40 mg PO BID [facility] Last Admin: 05/15/19 00:34 Dose: 40 mg Documented by: Lisinopril (Zestril) 20 mg PO QDAY [facility] Review of Systems ROS unobtainable: due to mental status Constitutional: anorexia Eyes: left: blurred vision Ears, nose, mouth and throat: ear pain, nose pain, nasal congestion, nasal discharge, sinus pressure, sinus pain Breasts: change in shape Cardiovascular: palpitations, no chest pain, no orthopnea Respiratory: no cough with sputum, no excessive sputum, no wheezing, no pleurisy, no pain Gastrointestinal: abdominal pain, nausea, vomiting, diarrhea Musculoskeletal: no neck stiffness, no neck pain, no shooting arm pain, no arm numbness/tingling, no hot joints, no fractures Exam - Constitutional Vitals: Temp Pulse Resp BP Pulse Ox 97.6 F 61 18 212/77 97 05/15/19 08:05 05/15/19 08:05 05/15/19 08:05 05/15/19 08:05 05/15/19 08:05 General appearance: Present: mild distress. Absent: well-nourished, cachectic, obese, disheveled - EENT Eyes: Present: PERRL, EOM intact ENT: hearing intact, clear oral mucosa, dentition normal - Neck Neck: Present: supple, normal ROM - Respiratory Respiratory: bilateral: CTA - Cardiovascular Rhythm: regular Heart Sounds: Present: systolic murmur. Absent: S1 & S2 - Extremities Extremities: no ischemia, pulses intact, Full ROM Extremity abnormal: edema (+2 pitting edea,) Peripheral Pulses: within normal limits - Abdominal General gastrointestinal: Present: soft, non-tender, non-distended Localized gastrointestinal: tender: RLQ, guarding: RLQ, rebound: RLQ, mass: RLQ, surgical scar: RLQ MARK score - Mark Score Age > 65: (0) No Aspirin use within the Past 7 Days: (0) No 3 or more CAD Risk Factors: (0) No 2 or more Angina events in past 24 hrs: (0) No Known CAD with more than 50% Stenosis: (0) No Elevated Cardiac Markers: (0) No ST Deviation Greater than 0.5mm: (0) No MARK Score: 0 Results - Labs CBC & Chem 7: 05/14/19 21:38 05/14/19 21:38 Labs: Laboratory Last Values WBC 8.7 K/mm3 (4.5-11.0) 05/14/19 21:38 RBC 3.56 M/mm3 (3.65-5.03) L 05/14/19 21:38 Hgb 10.4 gm/dl (10.1-14.3) 05/14/19 21:38 Hct 32.1 % (30.3-42.9) 05/14/19 21:38 MCV 90 fl (79-97) 05/14/19 21:38 MCH 29 pg (28-32) 05/14/19 21:38 MCHC 33 % (30-34) 05/14/19 21:38 RDW 14.7 % (13.2-15.2) 05/14/19 21:38 Plt Count 230 K/mm3 (140-440) 05/14/19 21:38 Lymph % (Auto) 18.5 % (13.4-35.0) 05/14/19 21:38 [place] % (Auto) 6.7 % (0.0-7.3) 05/14/19 21:38 Eos % (Auto) 4.1 % (0.0-4.3) 05/14/19 21:38 Baso % (Auto) 0.5 % (0.0-1.8) 05/14/19 21:38 Lymph # 1.6 K/mm3 (1.2-5.4) 05/14/19 21:38 [place] # 0.6 K/mm3 (0.0-0.8) 05/14/19 21:38 Eos # 0.4 K/mm3 (0.0-0.4) 05/14/19 21:38 Baso # 0.0 K/mm3 (0.0-0.1) 05/14/19 21:38 Seg Neutrophils % 70.2 % (40.0-70.0) H 05/14/19 21:38 Seg Neutrophils # 6.1 K/mm3 (1.8-7.7) 05/14/19 21:38 PT 14.2 Sec. (12.2-14.9) 05/14/19 21:38 INR 1.09 (0.87-1.13) 05/14/19 21:38 APTT 29.2 Sec. (24.2-36.6) 05/14/19 21:38 D-Dimer 1380.31 ng/mlDDU (0-234) H 05/14/19 21:38 ABG pH 7.492 pH Units (7.350-7.450) H 05/14/19 22:25 ABG pCO2 28.5 mm Hg 05/14/19 22:25 ABG pO2 145.1 mm Hg (80.0-90.0) H 05/14/19 22:25 ABG HCO3 21.4 mmol/L (20.0-26.0) 05/14/19 22:25 ABG O2 Saturation 98.9 % (95.0-99.0) 05/14/19 22:25 ABG O2 Content 21.5 (0.0-44) 05/14/19 22:25 ABG Base Excess -0.5 mmol/L (-2.0-3.0) 05/14/19 22:25 ABG Hemoglobin 15.6 gm/dl (12.0-16.0) 05/14/19 22:25 ABG Carboxyhemoglobin 1.1 % (0.0-5.0) 05/14/19 22:25 ABG Methemoglobin 0.6 % (0.0-1.5) 05/14/19 22:25 Oxyhemoglobin 97.3 % (95.0-99.0) 05/14/19 22:25 FiO2 21 % 05/14/19 22:25 Sodium 139 mmol/L (137-145) 05/14/19 21:38 Potassium 4.5 mmol/L (3.6-5.0) 05/14/19 21:38 Chloride 103.1 mmol/L (98-107) 05/14/19 21:38 Carbon Dioxide 25 mmol/L (22-30) 05/14/19 21:38 Anion Gap 15 mmol/L 05/14/19 21:38 BUN 19 mg/dL (7-17) H 05/14/19 21:38 Creatinine 1.2 mg/dL (0.7-1.2) 05/14/19 21:38 Estimated GFR 55 ml/min 05/14/19 21:38 BUN/Creatinine Ratio 16 % 05/14/19 21:38 Glucose 134 mg/dL (65-100) H 05/14/19 21:38 Calcium 9.3 mg/dL (8.4-10.2) 05/14/19 21:38 Magnesium 1.80 mg/dL (1.7-2.3) 05/14/19 21:38 Total Creatine Kinase 64 units/L (30-135) 05/14/19 21:38 Troponin T < 0.010 ng/mL (0.00-0.029) 05/15/19 07:05 NT-Pro-B Natriuret Pep 2009 pg/mL (0-900) H 05/14/19 21:38 - Imaging and Cardiology Chest x-ray: image reviewed (congestion) Assessment and Plan Assessment and plan: Patient is a 63-year-old female with hx of HTN, Morbid (170 systolic normally at home),history of morbid obesity, pulmonary hypertension, hypertension, dependent edema/lymphedema. She presents to the ED with chest pain, left sided, with shortness of breath, worse with inspiration and not at rest,. Aslo bilateral lower ext swelling. The patient was transferred from our facility to [facility] for imaging studies and ruled out PO. she reports compliances all meds and jono etimes uses for with her medication Atypical chest pain Acute on chronic diastoloic Heart failure Obesity Hypoventilation syndrome Chronic Lymphedema Hypertensive Urgency Severe Pulmonary Hypertension Hyperlipidemia Plan Admit to Telemetry Obtain Doppler Ultrasound lower ext Heart failure protocol with daily weights, fluid restriction, Cardiology and pulmonary consult Adjust BP meds for better control Counselling provided to patient about need to keep a diary of her BP Will continue with Lasix at 40mg PO BID dvt/gi PROPHY Advance Directives: Yes Plan of care discussed with patient/family: Yes
[2019-05-15] MEDS ORDERED: MORPHINE 2 MG/1 ML INJ IV PRN (08:13)
[2019-05-15] MEDS ORDERED: ALBUTEROL 2.5 MG/3 ML NEBU IH PRN (08:13)
[2019-05-15] MEDS ORDERED: NALOXONE 0.4 MG/1 ML INJ IV PRN (08:13)
[2019-05-15] MEDS ORDERED: ACETAMINOPHEN 325 MG TAB PO PRN (08:13)
[2019-05-15] MEDS ORDERED: ONDANSETRON 4 MG/2 ML INJ IV PRN (08:13)
[2019-05-15] MEDS ORDERED: hydrALAZINE 20 MG/1 ML INJ IV ONE (09:02)
[2019-05-15] MEDS ORDERED: hydrALAZINE 20 MG/1 ML INJ ONE (09:02)
[2019-05-15] MEDS ORDERED: diphenhydrAMINE/ZINC ACET 2% CREAM 28.4 GM TP PRN (09:43)
[2019-05-15] MEDS ORDERED: LISINOPRIL 20 MG TAB ONE (09:46)
[2019-05-15] MEDS ORDERED: carvediloL 3.125 MG TAB ONE (09:47)
[2019-05-15] MEDS: LISINOPRIL 20 MG TAB PO SCH (09:51)
[2019-05-15] MEDS ORDERED: hydrALAZINE 20 MG/1 ML INJ IV PRN (10:22)
[2019-05-15] MEDS: SENNOSIDES 8.6 MG TAB PO SCH ×2 (10:30→22:19)
--- NOTE | 2019-05-15 12:38 | Consultation ---
History of Present Illness Consult date: 05/15/19 Requesting physician: LISA TADEO Consult reason: chest pain, shortness of breath History of present illness: 61-year-old female with a past medical history of morbid obesity, lymphedema, hypertension, severe pulmonary hypertension, and hyperlipidemia presented to [facility] emergency department complaining of chest pain and increasing leg edema. On examination the patient's chest pain was worsened with palpation. The patient reports that over the past week she is noted increased swelling in her legs. A chest x-ray showed mild venous congestion. A 12-lead EKG reveals sinus rhythm with a ventricular rate of 89 bpm. In the emergency department the patient was hypertensive with systolics greater than 200 mmHg. Her cardiac enzymes were negative x2 and she had a proBNP of 2008. Past History Past Medical History: hypertension, other (Morbid obesity, lymphedema, severe pulmonary hypertension) Past Surgical History: Other Social history: denies: smoking, alcohol abuse, IV drug use Family history: denies: no significant family history Medications and Allergies Allergies Allergy/AdvReac Type Severity Reaction Status Date / Time Penicillins Allergy Hives Verified 04/03/19 00:37 Home Medications Medication Instructions Recorded Confirmed Last Taken Type Furosemide [Lasix TAB] 40 mg PO BID #60 tablet 04/05/19 05/15/19 Unknown Rx carvediloL [Coreg] 3.125 mg PO BID #90 tablet 04/05/19 05/15/19 Unknown Rx lisinopriL [Zestril TAB] 20 mg PO QDAY #30 tablet 04/05/19 05/15/19 Unknown Rx Active Meds: Active Medications Acetaminophen (Tylenol) 650 mg PO Q4H PRN PRN Reason: Pain MILD(1-3)/Fever >100.5/ROY Albuterol (Proventil) 2.5 mg IH Q4HRT PRN PRN Reason: Shortness Of Breath Albuterol/Ipratropium (Duoneb *Not For Prn Use*) 1 ampul IH Q6HRT [facility] Atorvastatin Calcium (Lipitor) 20 mg PO QHS [facility] Budesonide (Pulmicort) 0.5 mg IH Q12HRT [facility] Carvedilol (Coreg) 3.125 mg PO BID [facility] Last Admin: 05/15/19 09:51 Dose: 3.125 mg Documented by: Furosemide (Lasix) 40 mg IV 0600,1800 [facility] Hydralazine HCl (Apresoline) 20 mg IV Q4HR PRN PRN Reason: Hypertension Lisinopril (Zestril) 20 mg PO QDAY [facility] Last Admin: 05/15/19 09:51 Dose: 20 mg Documented by: Morphine Sulfate (Morphine) 2 mg IV Q4H PRN PRN Reason: Pain, Moderate (4-6) Naloxone HCl (Naloxone) 0.1 mg IV Q2MIN PRN PRN Reason: Res Rate </= 8 or 02 SAT < 92% Ondansetron HCl (Zofran) 4 mg IV Q4H PRN PRN Reason: Nausea And Vomiting Senna (Senokot) 8.6 mg PO Q12HR [facility] Last Admin: 05/15/19 10:30 Dose: Not Given Documented by: Sodium Chloride (Sodium Chloride Flush Syringe 10 Ml) 10 ml IV BID [facility] Last Admin: 05/15/19 09:52 Dose: 10 ml Documented by: Sodium Chloride (Sodium Chloride Flush Syringe 10 Ml) 10 ml IV PRN PRN PRN Reason: LINE FLUSH Sodium Chloride (Sodium Chloride Flush Syringe 10 Ml) 10 ml IV PRN PRN PRN Reason: LINE FLUSH Zinc Acetate/Diphenhydramine (Banophen Anti-Itch) 1 applic TP Q8H PRN PRN Reason: Itching Review of Systems Constitutional: no weight gain, no fever, no chills Ears, nose, mouth and throat: no deferred Breasts: no deferred Cardiovascular: chest pain, orthopnea, edema, shortness of breath, dyspnea on ex ertion, no syncope, no lightheadedness Respiratory: dyspnea on exertion, no hemoptysis, no wheezing Gastrointestinal: no nausea, no vomiting, no diarrhea Genitourinary Female: no vaginal itching, no vaginal discharge Rectal: no incontinence, no bleeding Musculoskeletal: no neck stiffness, no neck pain Integumentary: deferred Neurological: no transient paralysis, no paralysis Psychiatric: no anxiety, no memory loss Endocrine: no cold intolerance, no heat intolerance Hematologic/Lymphatic: no easy bruising, no easy bleeding Allergic/Immunologic: no urticaria, no allergic rhinitis Physical Examination Vital Signs Pulse Resp Pulse Ox 91 H 34 H 100 05/14/19 21:02 05/14/19 21:02 05/14/19 21:02 General appearance: no acute distress HEENT: Positive: PERRL, EOMI Neck: Positive: neck supple, trachea midline Cardiac: Positive: Reg Rate and Rhythm Lungs: Positive: Normal Exam, clear to auscultation, Normal Breath Sounds Neuro: Positive: Grossly Intact Abdomen: Positive: Soft, Active Bowel Sounds Female genitourinary: deferred Skin: Negative: Rash Extremities: Present: edema, warm Results 05/14/19 21:38 05/14/19 21:38 Coagulation 05/14/19 Range/Units 21:38 PT 14.2 (12.2-14.9) Sec. INR 1.09 (0.87-1.13) APTT 29.2 (24.2-36.6) Sec. CBC 05/14/19 Range/Units 21:38 WBC 8.7 (4.5-11.0) K/mm3 RBC 3.56 L (3.65-5.03) M/mm3 Hgb 10.4 (10.1-14.3) gm/dl Hct 32.1 (30.3-42.9) % Plt Count 230 (140-440) K/mm3 Lymph # 1.6 (1.2-5.4) K/mm3 [place] # 0.6 (0.0-0.8) K/mm3 Eos # 0.4 (0.0-0.4) K/mm3 Baso # 0.0 (0.0-0.1) K/mm3 Comprehensive Metabolic Panel 05/14/19 Range/Units 21:38 Sodium 139 (137-145) mmol/L Potassium 4.5 (3.6-5.0) mmol/L Chloride 103.1 (98-107) mmol/L Carbon Dioxide 25 (22-30) mmol/L BUN 19 H (7-17) mg/dL Creatinine 1.2 (0.7-1.2) mg/dL Glucose 134 H (65-100) mg/dL Calcium 9.3 (8.4-10.2) mg/dL - Imaging and Cardiology Echo: report reviewed (ECHO 04/03/19: EF 55-60%, mild to mod LVH, grade II diastolic dysfunction, RVSP 77mmHg, mild AR) EKG interpretations - Telemetry EKG Rhythm: Sinus Rhythm Assessment and Plan 63 Female morbid obesity chronic lymphedema Hypertension Hyperlipidemia Pulmonary hypertension admitted with accelerated hypertension atypical chest pain acute on chronic HFpEF 55-60% gentle diuresis strict I/O BP control
--- NOTE | 2019-05-15 12:41 | Consultation ---
History of Present Illness Consult date: 05/15/19 Reason for consult: dyspnea, cough, chest pain, other (Morbid Obesity.) History of present illness: PULMONARY AND CRITICAL CARE CONSULTATION. DR. WILLIS THANK YOU FOR ASKING US TO PARTICIPATE IN THE CARE OF THIS PATIENT. THIS IS 63 YEAR OLD FEMALE Is morbidley Obese Has a history of pulmonary hypertension, hypertension, dependent edema/lymphedema. She was seen at this hospital about a month ago for presumed congestive heart failure. She had a negative DVT study. Her echocardiogram showed an unremarkable ejection fraction, and pulmonary hypertension She is brought to the hospital by emergency medical services. She complains of central and left-sided chest wall pain, which is constant, increases with palpation, decreases with rest, and shortness of breath. Complaining nausea. She feels like her bilateral lower extremities are swollen. She feels like they are more swollen than baseline. She has poor mobility at baseline. There is no complaint of headache, neck pain, vomiting, Abdominal pain, and or obstructive urinary symptoms. Of note, patient has presented to this department in the past, with similar symptoms, with the exception of left sudden central chest discomfort, which appears to be new when compared to her prior evaluation Patient coughing up yellow sputum. Denies hemoptysis. Denies fever. Denies nasal congestion or sore throat. Complaining some sleep problems. Patient has no history of smoking, alkcohol or drug abuse. 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 Not and has no children. Patients BNP 2008. Recommend to obtain Angio CT of chest or V/Q scan. PFTs and sleep study as out patient. Past History Past Medical History: hypertension Social history: denies: smoking, alcohol abuse, prescription drug abuse, IV drug use Medications and Allergies Allergies Allergy/AdvReac Type Severity Reaction Status Date / Time Penicillins Allergy Hives Verified 04/03/19 00:37 Home Medications Medication Instructions Recorded Confirmed Last Taken Type Furosemide [Lasix TAB] 40 mg PO BID #60 tablet 04/05/19 05/15/19 Unknown Rx carvediloL [Coreg] 3.125 mg PO BID #90 tablet 04/05/19 05/15/19 Unknown Rx lisinopriL [Zestril TAB] 20 mg PO QDAY #30 tablet 04/05/19 05/15/19 Unknown Rx Active Meds: Active Medications Acetaminophen (Tylenol) 650 mg PO Q4H PRN PRN Reason: Pain MILD(1-3)/Fever >100.5/ROY Albuterol (Proventil) 2.5 mg IH Q4HRT PRN PRN Reason: Shortness Of Breath Albuterol/Ipratropium (Duoneb *Not For Prn Use*) 1 ampul IH Q6HRT [facility] Atorvastatin Calcium (Lipitor) 20 mg PO QHS [facility] Budesonide (Pulmicort) 0.5 mg IH Q12HRT [facility] Carvedilol (Coreg) 3.125 mg PO BID [facility] Last Admin: 05/15/19 09:51 Dose: 3.125 mg Documented by: Furosemide (Lasix) 40 mg IV 0600,1800 [facility] Hydralazine HCl (Apresoline) 20 mg IV Q4HR PRN PRN Reason: Hypertension Lisinopril (Zestril) 20 mg PO QDAY [facility] Last Admin: 05/15/19 09:51 Dose: 20 mg Documented by: Morphine Sulfate (Morphine) 2 mg IV Q4H PRN PRN Reason: Pain, Moderate (4-6) Naloxone HCl (Naloxone) 0.1 mg IV Q2MIN PRN PRN Reason: Res Rate </= 8 or 02 SAT < 92% Ondansetron HCl (Zofran) 4 mg IV Q4H PRN PRN Reason: Nausea And Vomiting Senna (Senokot) 8.6 mg PO Q12HR [facility] Last Admin: 05/15/19 10:30 Dose: Not Given Documented by: Sodium Chloride (Sodium Chloride Flush Syringe 10 Ml) 10 ml IV BID [facility] Last Admin: 05/15/19 09:52 Dose: 10 ml Documented by: Sodium Chloride (Sodium Chloride Flush Syringe 10 Ml) 10 ml IV PRN PRN PRN Reason: LINE FLUSH Sodium Chloride (Sodium Chloride Flush Syringe 10 Ml) 10 ml IV PRN PRN PRN Reason: LINE FLUSH Zinc Acetate/Diphenhydramine (Banophen Anti-Itch) 1 applic TP Q8H PRN PRN Reason: Itching Review of Systems All systems: negative Constitutional: fatigue, daytime sleepiness Cardiovascular: chest pain, shortness of breath Respiratory: cough, shortness of breath Gastrointestinal: nausea Physical Examination Vital signs: Vital Signs Pulse Resp Pulse Ox 91 H 34 H 100 05/14/19 21:02 05/14/19 21:02 05/14/19 21:02 General appearance: no acute distress, asleep, appears uncomfortable, other (Patient sleeping but easily arousabls.) Eyes: non-icteric ENT: oropharynx moist Neck: supple, no JVD Effort: mildly labored Ascultation: Bilateral: diminished breath sounds Cardiovascular: regular rate and rhythm Gastrointestinal: normoactive bowel sounds, soft, non-tender Integumentary: normal Extremities: no cyanosis, no edema Musculoskeletal: no deformities Gait: poor gait normal mental status, non-focal exam, pupils equal and round, CN II-XII normal depressed Results - Laboratory Findings CBC and BMP: 05/14/19 21:38 05/14/19 21:38 ABG ABG pH 7.492 pH Units (7.350-7.450) H 05/14/19 22:25 ABG pCO2 28.5 mm Hg 05/14/19 22:25 ABG pO2 145.1 mm Hg (80.0-90.0) H 05/14/19 22:25 ABG O2 Saturation 98.9 % (95.0-99.0) 05/14/19 22:25 PT/INR, D-dimer PT 14.2 Sec. (12.2-14.9) 05/14/19 21:38 INR 1.09 (0.87-1.13) 05/14/19 21:38 D-Dimer 1380.31 ng/mlDDU (0-234) H 05/14/19 21:38 Abnormal lab findings: Abnormal Labs 05/14/19 05/14/19 05/14/19 21:38 21:38 21:38 RBC 3.56 L Seg Neutrophils % 70.2 H D-Dimer ABG pH ABG pO2 BUN 19 H Glucose 134 H NT-Pro-B Natriuret Pep 2008 H 05/14/19 05/14/19 21:38 22:25 RBC Seg Neutrophils % D-Dimer 1380.31 H ABG pH 7.492 H ABG pO2 145.1 H BUN Glucose NT-Pro-B Natriuret Pep - Diagnostic Findings Chest x-ray: report reviewed (Mild venous congestion without evidence of cardiomegaly. No large pleural effusion. ), image reviewed Assessment and Plan THIS IS 63 YEAR OLD FEMALE Is morbidley Obese Has a history of pulmonary hypertension, hypertension, dependent edema/lymphedema. She was seen at this hospital about a month ago for presumed congestive heart failure. She had a negative DVT study. Her echocardiogram showed an unremarkable ejection fraction, and pulmonary hypertension She is brought to the hospital by emergency medical services. She complains of central and left-sided chest wall pain, which is constant, increases with palpation, decreases with rest, and shortness of breath. Complaining nausea. She feels like her bilateral lower extremities are swollen. She feels like they are more swollen than baseline. She has poor mobility at baseline. There is no complaint of headache, neck pain, vomiting, Abdominal pain, and or obstructive urinary symptoms. Of note, patient has presented to this department in the past, with similar symptoms, with the exception of left sudden central chest discomfort, which appears to be new when compared to her prior evaluation Patient coughing up yellow sputum. Denies hemoptysis. Denies fever. Denies nasal congestion or sore throat. Complaining some sleep problems. Patient has no history of smoking, alkcohol or drug abuse. 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 Not and has no children. Patient BNP 2008. Recommend to obtain Angio CT of chest or V/Q scan. PFTs and sleep study as out patient. - Patient Problems (1) Chest pain Current Visit: Yes Status: Acute Qualifiers: Chest pain type: unspecified Qualified Code(s): R07.9 - Chest pain, unspecified (2) Shortness of breath Current Visit: Yes Status: Acute Plan to address problem: O2 2 litres via nasal canula. Recommend to get Angio CT or V/Q scan Albuterol/atrovent aerosol treatments q 6 hours. Budeaonide aerosol treatments q 12 hours. Recommend DVT prophylaxis S/C LOvenox or heparin. Recommend GI prophylaxis. Recommend Levaquine BIPAP during night time and Prn during day time for shortness of breath, (3) HTN (hypertension) Current Visit: Yes Status: Chronic Plan to address problem: Management as per primary care. (4) Morbid obesity Current Visit: Yes Status: Chronic Plan to address problem: Recommend to loose weight. Recommend PFTs and sleep study as out patient. (5) Acute heart failure with preserved ejection fraction Current Visit: No Status: Acute Plan to address problem: Management as per cardiology. (6) Severe pulmonary arterial systolic hypertension Current Visit: No Status: Chronic Plan to address problem: Severe pulmonary hypertension from cardiac origin and sleep apnea. Recommend sleep study and PFTs as out patient. (7) Acute bronchitis Current Visit: Yes Status: Acute Plan to address problem: Recommend to start on PO Levaquin.
[2019-05-15] MEDS: IPRATROPIUM/ALBUTEROL SULFATE 3 ML AMPUL.NEB IH SCH ×2 (14:07→20:02)
[2019-05-15] MEDS: FUROSEMIDE 40 MG/4 ML INJ IV SCH (19:25)
[2019-05-15] MEDS: BUDESONIDE 0.5 MG/2 ML NEBU IH SCH (20:02)
[2019-05-16] MEDS: IPRATROPIUM/ALBUTEROL SULFATE 3 ML AMPUL.NEB IH SCH ×4 (04:15→21:06)
[2019-05-16] MEDS: FUROSEMIDE 40 MG/4 ML INJ IV SCH ×2 (05:17→17:00)
[2019-05-16 06:28] LABS: Basophils % (Auto) 0.6 % (0.0-1.8); Eosinophils # (Auto) 0.3 K/mm3 (0.0-0.4); Eosinophils % (Auto) 4.5 % (0.0-4.3); Hematocrit 30.9 % (30.3-42.9); Hemoglobin 10.2 gm/dl (10.1-14.3); Lymphocytes # (Auto) 2.4 K/mm3 (1.2-5.4); Lymphocytes % (Auto) 32.8 % (13.4-35.0); Mean Corpuscular HGB Conc 33 % (30-34); Mean Corpuscular Volume 90 fl (79-97); Monocytes # (Auto) 0.6 K/mm3 (0.0-0.8); Monocytes % (Auto) 8.3 % (0.0-7.3); Platelet Count 247 K/mm3 (140-440); Red Blood Count 3.43 M/mm3 (3.65-5.03)
[2019-05-16 06:40] LABS: Calcium 8.9 mg/dL (8.4-10.2)
[2019-05-16] MEDS: BUDESONIDE 0.5 MG/2 ML NEBU IH SCH ×2 (08:10→21:06)
[2019-05-16] MEDS: LISINOPRIL 20 MG TAB PO SCH (09:43)
[2019-05-16] MEDS: SENNOSIDES 8.6 MG TAB PO SCH ×2 (09:43→22:29)
[2019-05-16] MEDS: carvediloL 3.125 MG TAB PO SCH ×2 (09:44→22:29)
--- NOTE | 2019-05-16 11:30 | Progress Note ---
Assessment and Plan Cont present cardiac management. Pt has atypical chest pain with pleuritic features. AMI r/o. Body habitus precludes ischemic evaluation at this time. Pt recently noted to have severe pulmonary HTN on prior admission with etiology of pulmonary hypertension unknown, ?chronic hypoxemia. Pt unable to complete CT scan due to body habitus. Pt was recommended OP pulmonary f/u and sleep study, however, she did not follow up. Pulmonary currently following. The patient has been seen in conjunction with Dr. Milka Hatfield who agrees with the assessment and plan of care. - Patient Problems (1) Acute heart failure with preserved ejection fraction Current Visit: Yes Status: Acute (2) Atypical chest pain Current Visit: Yes Status: Acute (3) Severe pulmonary arterial systolic hypertension Current Visit: Yes Status: Chronic (4) Accelerated HTN (hypertension) Current Visit: Yes Status: Chronic (5) Morbid obesity Current Visit: Yes Status: Chronic (6) Chronic lymphedema Current Visit: Yes Status: Chronic Subjective Date of service: 05/16/19 Principal diagnosis: cp Interval history: pt resting in bed, states she is feeling better today, has cp with coughing, deep inspiration and movement. in SR on tele HR 80s. Objective Last Vital Signs Temp 99.7 F H 05/16/19 07:58 Pulse 77 05/16/19 10:00 Resp 18 05/16/19 10:00 BP 134/70 05/16/19 09:44 Pulse Ox 94 05/16/19 09:22 - Physical Examination General: No Apparent Distress HEENT: Positive: PERRL, EOMI Neck: Positive: neck supple, trachea midline Cardiac: Positive: Reg Rate and Rhythm, S1/S2 Lungs: Positive: Decreased Breath Sounds Neuro: Positive: Grossly Intact Abdomen: Positive: Soft, Active Bowel Sounds Skin: Negative: Rash Extremities: Present: edema, warm - Labs and Meds CBC 05/16/19 Range/Units 05:50 WBC 7.4 (4.5-11.0) K/mm3 RBC 3.43 L (3.65-5.03) M/mm3 Hgb 10.2 (10.1-14.3) gm/dl Hct 30.9 (30.3-42.9) % Plt Count 247 (140-440) K/mm3 Lymph # 2.4 (1.2-5.4) K/mm3 [place] # 0.6 (0.0-0.8) K/mm3 Eos # 0.3 (0.0-0.4) K/mm3 Baso # 0.0 (0.0-0.1) K/mm3 Comprehensive Metabolic Panel 05/16/19 Range/Units 05:50 Sodium 138 (137-145) mmol/L Potassium 4.2 (3.6-5.0) mmol/L Chloride 101.5 (98-107) mmol/L Carbon Dioxide 23 (22-30) mmol/L BUN 21 H (7-17) mg/dL Creatinine 1.4 H (0.7-1.2) mg/dL Glucose 113 H (65-100) mg/dL Calcium 8.9 (8.4-10.2) mg/dL - Imaging and Cardiology Echo: report reviewed (ECHO 04/03/19: EF 55-60%, mild to mod LVH, grade II diastolic dysfunction, RVSP 77mmHg, mild AR)
--- NOTE | 2019-05-16 12:24 | Progress Note ---
Assessment and Plan Patient alert, awake. Resting on room air. Says feeling and breathing better than yesterday. O2 saturation 95%. No complaint of chest pain to day. Patient has doppker studies of legs. Report pending.. - Patient Problems (1) Chest pain Current Visit: Yes Status: Acute Qualifiers: Chest pain type: unspecified Qualified Code(s): R07.9 - Chest pain, unspecified Plan to address problem: No complaint of chest pain to day. (2) Shortness of breath Current Visit: Yes Status: Acute Plan to address problem: O2 2 litres via nasal canula. Recommend to get Angio CT or V/Q scan Albuterol/atrovent aerosol treatments q 6 hours. Budeaonide aerosol treatments q 12 hours. Recommend DVT prophylaxis S/C LOvenox or heparin. Recommend GI prophylaxis. Recommend Levaquine BIPAP during night time and Prn during day time for shortness of breath, (3) HTN (hypertension) Current Visit: Yes Status: Chronic Plan to address problem: Management as per primary care. (4) Morbid obesity Current Visit: Yes Status: Chronic Plan to address problem: Recommend to loose weight. Recommend PFTs and sleep study as out patient. (5) Acute heart failure with preserved ejection fraction Current Visit: No Status: Acute Plan to address problem: Management as per cardiology. (6) Severe pulmonary arterial systolic hypertension Current Visit: No Status: Chronic Plan to address problem: Severe pulmonary hypertension from cardiac origin and sleep apnea. Recommend sleep study and PFTs as out patient. (7) Acute bronchitis Current Visit: Yes Status: Acute Plan to address problem: Recommend to start on PO Levaquin. Subjective Date of service: 05/16/19 Principal diagnosis: cp Interval history: Patient alert, awake. Resting on room air. Says feeling and breathing better than yesterday. O2 saturation 95%. No complaint of chest pain to day. Patient has doppker studies of legs. Report pending. Objective Vital Signs - 12hr 05/16/19 05/16/19 05/16/19 02:00 04:49 07:58 Temperature 99.0 F 99.7 F H Pulse Rate 68 76 Pulse Rate [ 86 Anterior Bilateral Throughout] Respiratory 20 18 Rate Respiratory 22 Rate [Anterior Bilateral Throughout] Blood Pressure 155/54 148/53 Blood Pressure [Left] O2 Sat by Pulse 96 94 Oximetry 05/16/19 05/16/19 05/16/19 08:00 09:22 09:43 Temperature Pulse Rate 68 Pulse Rate [ 77 Anterior Bilateral Throughout] Respiratory Rate Respiratory 18 Rate [Anterior Bilateral Throughout] Blood Pressure 134/70 Blood Pressure [Left] O2 Sat by Pulse 94 Oximetry 05/16/19 05/16/19 05/16/19 09:44 10:00 12:00 Temperature 98.6 F Pulse Rate 68 77 72 Pulse Rate [ Anterior Bilateral Throughout] Respiratory 18 20 Rate Respiratory Rate [Anterior Bilateral Throughout] Blood Pressure 134/70 Blood Pressure 136/44 [Left] O2 Sat by Pulse 95 Oximetry Constitutional: no acute distress, alert, appears uncomfortable Eyes: non-icteric ENT: oropharynx moist Neck: supple, no JVD Effort: mildly labored Ascultation: Bilateral: diminished breath sounds Cardiovascular: regular rate and rhythm Gastrointestinal: normoactive bowel sounds, soft, non-tender Integumentary: normal Extremities: no cyanosis, no edema Neurologic: normal mental status, non-focal exam, pupils equal and round, CN II- XII normal Psychiatric: depressed CBC and BMP: 05/16/19 05:50 05/16/19 05:50 ABG, PT/INR, D-dimer: ABG ABG pH 7.492 pH Units (7.350-7.450) H 05/14/19 22:25 ABG pCO2 28.5 mm Hg 05/14/19 22:25 ABG pO2 145.1 mm Hg (80.0-90.0) H 05/14/19 22:25 ABG O2 Saturation 98.9 % (95.0-99.0) 05/14/19 22:25 PT/INR, D-dimer PT 14.2 Sec. (12.2-14.9) 05/14/19 21:38 INR 1.09 (0.87-1.13) 05/14/19 21:38 D-Dimer 1380.31 ng/mlDDU (0-234) H 05/14/19 21:38 Abnormal lab findings: Abnormal Labs 05/14/19 05/14/19 05/14/19 21:38 21:38 21:38 RBC 3.56 L [place] % (Auto) Eos % (Auto) Seg Neutrophils % 70.2 H D-Dimer ABG pH ABG pO2 BUN 19 H Creatinine Glucose 134 H NT-Pro-B Natriuret Pep 2008 H 05/14/19 05/14/19 05/16/19 21:38 22:25 05:50 RBC 3.43 L [place] % (Auto) 8.3 H Eos % (Auto) 4.5 H Seg Neutrophils % D-Dimer 1380.31 H ABG pH 7.492 H ABG pO2 145.1 H BUN Creatinine Glucose NT-Pro-B Natriuret Pep 05/16/19 05:50 RBC [place] % (Auto) Eos % (Auto) Seg Neutrophils % D-Dimer ABG pH ABG pO2 BUN 21 H Creatinine 1.4 H Glucose 113 H NT-Pro-B Natriuret Pep
--- NOTE | 2019-05-16 13:57 | Progress Note ---
Assessment and Plan Assessment and plan: Patient is a 63-year-old female with hx of HTN, Morbid obesity, pulmonary hypertension, hypertension, dependent edema/lymphedema. She presents to the ED with chest pain, left sided, with shortness of breath, worse with inspiration and not at rest,. Aslo bilateral lower ext swelling. The patient was transferred from our facility to [facility] for imaging studies. she reports compliances all meds and sometimes uses for with her medication Atypical chest pain; chest pain resolved. Cardiology evaluated the patient and patient body habitus does not fit for stress test Acute on chronic diastoloic Heart failure; fluid restriction. Cardiology evaluated the patient. On Lasix Obesity Hypoventilation syndrome; patient is on intranasal oxygen, pulmonary is following Chronic Lymphedema; Hypertensive Urgency Severe Pulmonary Hypertension Hyperlipidemia Plan Admit to Telemetry Doppler Ultrasound lower ext; negative for DVT Heart failure protocol with daily weights, fluid restriction, Cardiology and pulmonary consult Adjust BP meds for better control Counselling provided to patient about need to keep a diary of her BP Will continue with Lasix at 40mg PO BID dvt/gi PROPHY History Interval history: Patient was seen and evaluated this morning, patient did not have any complaints. Hospitalist Physical - Physical exam Narrative exam: Not in cardiopulmonary distress. The patient is morbidly obese. Vital signs as documented. Head exam is unremarkable. No scleral icterus . Neck is without jugular venous distension, thyromegaly, or carotid bruits. Lungs are clear to auscultation. Cardiac exam reveals regular rate and Rhythm. Abdominal exam reveals normal bowel sounds, nontender, no organomegaly. Extremities nonpitting edema. 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 No focal weakness. - Constitutional Vitals: Temp Pulse Resp BP Pulse Ox 98.6 F 72 20 136/44 95 05/16/19 12:00 05/16/19 12:00 05/16/19 12:00 05/16/19 12:05/16/19 12:00 General appearance: Present: mild distress. Absent: well-nourished, cachectic, obese, disheveled MARK score - Mark Score Age > 65: (0) No Aspirin use within the Past 7 Days: (0) No 3 or more CAD Risk Factors: (0) No 2 or more Angina events in past 24 hrs: (0) No Known CAD with more than 50% Stenosis: (0) No Elevated Cardiac Markers: (0) No ST Deviation Greater than 0.5mm: (0) No MARK Score: 0 Results - Labs CBC & Chem 7: 05/16/19 05:50 05/16/19 05:50 Labs: Laboratory Last Values WBC 7.4 K/mm3 (4.5-11.0) 05/16/19 05:50 RBC 3.43 M/mm3 (3.65-5.03) L 05/16/19 05:50 Hgb 10.2 gm/dl (10.1-14.3) 05/16/19 05:50 Hct 30.9 % (30.3-42.9) 05/16/19 05:50 MCV 90 fl (79-97) 05/16/19 05:50 MCH 30 pg (28-32) 05/16/19 05:50 MCHC 33 % (30-34) 05/16/19 05:50 RDW 15.0 % (13.2-15.2) 05/16/19 05:50 Plt Count 247 K/mm3 (140-440) 05/16/19 05:50 Lymph % (Auto) 32.8 % (13.4-35.0) 05/16/19 05:50 [place] % (Auto) 8.3 % (0.0-7.3) H 05/16/19 05:50 Eos % (Auto) 4.5 % (0.0-4.3) H 05/16/19 05:50 Baso % (Auto) 0.6 % (0.0-1.8) 05/16/19 05:50 Lymph # 2.4 K/mm3 (1.2-5.4) 05/16/19 05:50 [place] # 0.6 K/mm3 (0.0-0.8) 05/16/19 05:50 Eos # 0.3 K/mm3 (0.0-0.4) 05/16/19 05:50 Baso # 0.0 K/mm3 (0.0-0.1) 05/16/19 05:50 Seg Neutrophils % 53.8 % (40.0-70.0) 05/16/19 05:50 Seg Neutrophils # 4.0 K/mm3 (1.8-7.7) 05/16/19 05:50 PT 14.2 Sec. (12.2-14.9) 05/14/19 21:38 INR 1.09 (0.87-1.13) 05/14/19 21:38 APTT 29.2 Sec. (24.2-36.6) 05/14/19 21:38 D-Dimer 1380.31 ng/mlDDU (0-234) H 05/14/19 21:38 ABG pH 7.492 pH Units (7.350-7.450) H 05/14/19 22:25 ABG pCO2 28.5 mm Hg 05/14/19 22:25 ABG pO2 145.1 mm Hg (80.0-90.0) H 05/14/19 22:25 ABG HCO3 21.4 mmol/L (20.0-26.0) 05/14/19 22:25 ABG O2 Saturation 98.9 % (95.0-99.0) 05/14/19 22:25 ABG O2 Content 21.5 (0.0-44) 05/14/19 22:25 ABG Base Excess -0.5 mmol/L (-2.0-3.0) 05/14/19 22:25 ABG Hemoglobin 15.6 gm/dl (12.0-16.0) 05/14/19 22:25 ABG Carboxyhemoglobin 1.1 % (0.0-5.0) 05/14/19 22:25 ABG Methemoglobin 0.6 % (0.0-1.5) 05/14/19 22:25 Oxyhemoglobin 97.3 % (95.0-99.0) 05/14/19 22:25 FiO2 21 % 05/14/19 22:25 Sodium 138 mmol/L (137-145) 05/16/19 05:50 Potassium 4.2 mmol/L (3.6-5.0) 05/16/19 05:50 Chloride 101.5 mmol/L (98-107) 05/16/19 05:50 Carbon Dioxide 23 mmol/L (22-30) 05/16/19 05:50 Anion Gap 18 mmol/L 05/16/19 05:50 BUN 21 mg/dL (7-17) H 05/16/19 05:50 Creatinine 1.4 mg/dL (0.7-1.2) H 05/16/19 05:50 Estimated GFR 46 ml/min 05/16/19 05:50 BUN/Creatinine Ratio 15 % 05/16/19 05:50 Glucose 113 mg/dL (65-100) H 05/16/19 05:50 Calcium 8.9 mg/dL (8.4-10.2) 05/16/19 05:50 Magnesium 1.80 mg/dL (1.7-2.3) 05/14/19 21:38 Total Creatine Kinase 64 units/L (30-135) 05/14/19 21:38 Troponin T < 0.010 ng/mL (0.00-0.029) 05/15/19 07:05 NT-Pro-B Natriuret Pep 2009 pg/mL (0-900) H 05/14/19 21:38 Active Medications - Current Medications Current Medications: Generic Name Dose Route Start Last Admin Trade Name Freq PRN Reason Stop Dose Admin Acetaminophen 650 mg 05/15/19 08:13 Tylenol PO Q4H PRN Pain MILD(1-3)/Fever >100.5/ROY Albuterol 2.5 mg 05/15/19 08:13 Proventil IH Q4HRT PRN Shortness Of Breath Albuterol/Ipratropium 1 ampul 05/15/19 14:00 05/16/19 08:09 Duoneb *Not For Prn Use* IH 1 ampul Q6HRT KALE Administration Atorvastatin Calcium 20 mg 05/15/19 22:00 05/15/19 22:20 Lipitor PO 20 mg QHS KALE Administration Budesonide 0.5 mg 05/15/19 20:00 05/16/19 08:10 Pulmicort IH 0.5 mg Q12HRT KALE Administration Carvedilol 3.125 mg 05/14/19 23:45 05/16/19 09:44 Coreg PO 3.125 mg BID KALE Administration Furosemide 40 mg 05/15/19 18:00 05/16/19 05:17 Lasix IV 40 mg 0600,1800 KALE Administration Hydralazine HCl 20 mg 05/15/19 10:22 Apresoline IV Q4HR PRN SBP > 160 AND/OR DBP >100 Lisinopril 20 mg 05/15/19 10:00 05/16/19 09:43 Zestril PO 20 mg QDAY KALE Administration Morphine Sulfate 2 mg 05/15/19 08:13 Morphine IV Q4H PRN Pain, Moderate (4-6) Naloxone HCl 0.1 mg 05/15/19 08:13 Naloxone IV Q2MIN PRN Res Rate </= 8 or 02 SAT < 92% Ondansetron HCl 4 mg 05/15/19 08:13 Zofran IV Q4H PRN Nausea And Vomiting Senna 8.6 mg 05/15/19 10:00 05/16/19 09:43 Senokot PO 8.6 mg Q12HR KALE Administration Sodium Chloride 10 ml 05/15/19 10:00 05/16/19 09:44 Sodium Chloride Flush Syringe 10 Ml IV 10 ml BID KALE Administration Sodium Chloride 10 ml 05/15/19 08:13 Sodium Chloride Flush Syringe 10 Ml IV PRN PRN LINE FLUSH Zinc Acetate/Diphenhydramine 1 applic 05/15/19 09:43 Banophen Anti-Itch TP Q8H PRN Itching
[2019-05-17] MEDS: IPRATROPIUM/ALBUTEROL SULFATE 3 ML AMPUL.NEB IH SCH ×3 (02:59→13:34)
[2019-05-17] MEDS: FUROSEMIDE 40 MG/4 ML INJ IV SCH ×2 (05:55→17:27)
--- NOTE | 2019-05-17 08:07 | Vascular Lab Report ---
DUPLEX DOPPLER LOWER EXTREMITY VEINS, BILATERAL INDICATION: b/l lower ext swelling. TECHNIQUE: Duplex doppler imaging was performed through the veins of both lower extremities using venous madison jak and other maneuvers. COMPARISON: No relevant prior imaging study available. FINDINGS: Right Common femoral vein: Negative. Right Superficial femoral vein: Negative. Right Popliteal vein: Negative. Right Calf veins: Negative. Left Common femoral vein: Negative. Left Superficial femoral vein: Negative. Left Popliteal vein: Negative. Left Calf veins: Negative. Additional findings: None.. IMPRESSION: 1. No sonographic evidence for DVT in either lower extremity. Signer Name: Otto Alex MD Signed: 05/16/2019 11:15 AM Workstation Name: [id number]
[2019-05-17] MEDS: BUDESONIDE 0.5 MG/2 ML NEBU IH SCH (09:09)
[2019-05-17] MEDS: LISINOPRIL 20 MG TAB PO SCH (10:28)
[2019-05-17] MEDS: carvediloL 3.125 MG TAB PO SCH (10:28)
[2019-05-17] MEDS: SENNOSIDES 8.6 MG TAB PO SCH (10:28)
--- NOTE | 2019-05-17 10:40 | Discharge Summary ---
Providers - Providers Date of Admission: 05/15/19 07:41 Attending physician: LISA TADEO MD 05/15/19 Consult to Cardiac Rehabilitation [CONS] Routine Reason For Exam: Phase I 05/15/19 08:12 Consult to Physician [CONS] Routine Comment: Consulting Provider: OMARI GARVEY Physician Instructions: Reason For Exam: COPD Consult to Physician [CONS] Routine Comment: Consulting Provider: HEATHER RITTER Physician Instructions: Reason For Exam: CHF EXACERBATION 05/16/19 08:34 Physical Therapy Evaluation and Treat [CONS] Routine Comment: Reason For Exam: ambulation Primary care physician: GRADUATE ASSISTANT Hospitalization Condition: Good Disposition: DC/TX-06 HOME UNDER HOME HLTH Exam - Constitutional Vitals: Temp Pulse Resp BP Pulse Ox 98.1 F 78 18 185/70 94 05/17/19 07:09 05/17/19 10:28 05/17/19 07:09 05/17/19 10:28 05/17/19 05:01 Plan Activity: advance as tolerated, fall precautions Diet: low fat, low salt Special Instructions: restrict fluid intake to (1200cc/day), record daily weights, record daily BP diary Follow up with: PRIMARY CAREMD [Primary Care Provider] - 3-5 Days OMARI GARVEY MD [Staff Physician] - 7 Days HEATHER RITTER MD [Staff Physician] - 3 Days Prescriptions: AtorvaSTATin [Lipitor] 20 mg PO QHS #30 tablet Fluticasone/Salmeterol [Advair Diskus 250-50 mcg] 1 puff IH BID #1 disk.w.dev Furosemide [Lasix TAB] 40 mg PO BID #60 tablet Albuterol Sulfate [Proventil Hfa] 6.7 gm IH QID PRN #1 hfa.aer.ad PRN Reason: Shortness Of Breath
--- NOTE | 2019-05-17 12:33 | Progress Note ---
Assessment and Plan Atypical chest pain currently resolved. AMI r/o. Body habitus precludes ischemic evaluation at this time. Pt recently noted to have severe pulmonary HTN on prior admission with etiology of pulmonary hypertension unknown, ?chronic hypoxemia. Pt unable to complete CT scan due to body habitus. Pt was recommended OP pulmonary f/u and sleep study, however, she did not follow up. Pulmonary currently following. Currently stable cardiac status. Pt may discharge from cardiology standpoint on home cardiac regimen. Recommend pt follow up in our office with Dr. Dominguez within 3-5 days of discharge ([phone]). The patient has been seen in conjunction with Dr. Milka Hatfield who agrees with the assessment and plan of care. - Patient Problems (1) Acute heart failure with preserved ejection fraction Current Visit: Yes Status: Acute (2) Atypical chest pain Current Visit: Yes Status: Resolved (3) Severe pulmonary arterial systolic hypertension Current Visit: Yes Status: Chronic (4) Accelerated HTN (hypertension) Current Visit: Yes Status: Chronic (5) Morbid obesity Current Visit: Yes Status: Chronic (6) Chronic lymphedema Current Visit: Yes Status: Chronic Subjective Date of service: 05/17/19 Principal diagnosis: cp Interval history: pt resting in bed, states she is feeling better today, no current chest pain. in SR on tele HR 80s. Objective - Physical Examination General: No Apparent Distress HEENT: Positive: PERRL, EOMI Neck: Positive: neck supple, trachea midline Cardiac: Positive: Reg Rate and Rhythm, S1/S2 Lungs: Positive: Decreased Breath Sounds Neuro: Positive: Grossly Intact Abdomen: Positive: Soft, Active Bowel Sounds Skin: Negative: Rash Extremities: Present: edema, warm - Labs and Meds Comprehensive Metabolic Panel 05/17/19 Range/Units 04:53 Sodium 138 (137-145) mmol/L Potassium 4.0 (3.6-5.0) mmol/L Chloride 100.3 (98-107) mmol/L Carbon Dioxide 24 (22-30) mmol/L BUN 23 H (7-17) mg/dL Creatinine 1.2 (0.7-1.2) mg/dL Glucose 142 H (65-100) mg/dL Calcium 9.0 (8.4-10.2) mg/dL - Imaging and Cardiology Echo: report reviewed (ECHO 04/03/19: EF 55-60%, mild to mod LVH, grade II diastolic dysfunction, RVSP 77mmHg, mild AR)
--- NOTE | 2019-05-17 13:03 | Progress Note ---
Assessment and Plan Patient alert, awake. Resting on room air. Says feeling and breathing better than yesterday. O2 saturation 95%. No complaint of chest pain to day. Patient has doppler studies of legs. Reported No sonographic evidence of DVT in both legs. - Patient Problems (1) Chest pain Current Visit: Yes Status: Acute Qualifiers: Chest pain type: unspecified Qualified Code(s): R07.9 - Chest pain, unspecified Plan to address problem: No complaint of chest pain to day. (2) Shortness of breath Current Visit: Yes Status: Acute Plan to address problem: O2 2 litres via nasal canula. Recommend to get Angio CT or V/Q scan Albuterol/atrovent aerosol treatments q 6 hours. Budeaonide aerosol treatments q 12 hours. Recommend DVT prophylaxis S/C LOvenox or heparin. Recommend GI prophylaxis. Recommend Levaquine BIPAP during night time and Prn during day time for shortness of breath, (3) HTN (hypertension) Current Visit: Yes Status: Chronic Plan to address problem: Management as per primary care. (4) Morbid obesity Current Visit: Yes Status: Chronic Plan to address problem: Recommend to loose weight. Recommend PFTs and sleep study as out patient. (5) Acute heart failure with preserved ejection fraction Current Visit: No Status: Acute Plan to address problem: Management as per cardiology. (6) Severe pulmonary arterial systolic hypertension Current Visit: No Status: Chronic Plan to address problem: Severe pulmonary hypertension from cardiac origin and sleep apnea. Recommend sleep study and PFTs as out patient. (7) Acute bronchitis Current Visit: Yes Status: Acute Plan to address problem: Recommend to start on PO Levaquin. Subjective Date of service: 05/17/19 Principal diagnosis: cp Interval history: atient alert, awake. Resting on room air. Says feeling and breathing better than yesterday. O2 saturation 95%. No complaint of chest pain to day. Patient has doppler studies of legs. Reported No sonographic evidence of DVT in both legs. Objective Vital Signs - 12hr 05/17/19 05/17/19 05/17/19 03:00 05:01 07:09 Temperature 98.3 F 98.1 F Pulse Rate 75 Pulse Rate [ 82 Anterior Bilateral Throughout] Respiratory 20 18 Rate Respiratory 18 Rate [Anterior Bilateral Throughout] Blood Pressure 151/54 172/62 O2 Sat by Pulse 94 Oximetry 05/17/19 10:28 Temperature Pulse Rate 78 Pulse Rate [ Anterior Bilateral Throughout] Respiratory Rate Respiratory Rate [Anterior Bilateral Throughout] Blood Pressure 185/70 O2 Sat by Pulse Oximetry Constitutional: no acute distress, alert, appears uncomfortable Eyes: non-icteric ENT: oropharynx moist Neck: supple, no JVD Effort: mildly labored Ascultation: Bilateral: diminished breath sounds Cardiovascular: regular rate and rhythm Gastrointestinal: normoactive bowel sounds, soft, non-tender Integumentary: normal Extremities: no cyanosis, no edema Neurologic: normal mental status, non-focal exam, pupils equal and round, CN II- XII normal Psychiatric: depressed CBC and BMP: 05/16/19 05:50 05/17/19 04:53 ABG, PT/INR, D-dimer: ABG ABG pH 7.492 pH Units (7.350-7.450) H 05/14/19 22:25 ABG pCO2 28.5 mm Hg 05/14/19 22:25 ABG pO2 145.1 mm Hg (80.0-90.0) H 05/14/19 22:25 ABG O2 Saturation 98.9 % (95.0-99.0) 05/14/19 22:25 PT/INR, D-dimer PT 14.2 Sec. (12.2-14.9) 05/14/19 21:38 INR 1.09 (0.87-1.13) 05/14/19 21:38 D-Dimer 1380.31 ng/mlDDU (0-234) H 05/14/19 21:38 Abnormal lab findings: Abnormal Labs 05/14/19 05/14/19 05/14/19 21:38 21:38 21:38 RBC 3.56 L [place] % (Auto) Eos % (Auto) Seg Neutrophils % 70.2 H D-Dimer ABG pH ABG pO2 BUN 19 H Creatinine Glucose 134 H NT-Pro-B Natriuret Pep 2008 H 05/14/19 05/14/19 05/16/19 21:38 22:25 05:50 RBC 3.43 L [place] % (Auto) 8.3 H Eos % (Auto) 4.5 H Seg Neutrophils % D-Dimer 1380.31 H ABG pH 7.492 H ABG pO2 145.1 H BUN Creatinine Glucose NT-Pro-B Natriuret Pep 05/16/19 05/17/19 05:50 04:53 RBC [place] % (Auto) Eos % (Auto) Seg Neutrophils % D-Dimer ABG pH ABG pO2 BUN 21 H 23 H Creatinine 1.4 H Glucose 113 H 142 H NT-Pro-B Natriuret Pep Prior PFT's, U/S of legs: report reviewed Additional Studies: DUPLEX DOPPLER LOWER EXTREMITY VEINS, BILATERAL 05/16/19 INDICATION: b/l lower ext swelling. TECHNIQUE: Duplex doppler imaging was performed through the veins of both lower extremities using venous compression and other maneuvers. COMPARISON: No relevant prior imaging study available. FINDINGS: Right Common femoral vein: Negative. Right Superficial femoral vein: Negative. Right Popliteal vein: Negative. Right Calf veins: Negative. Left Common femoral vein: Negative. Left Superficial femoral vein: Negative. Left Popliteal vein: Negative. Left Calf veins: Negative. Additional findings: None.. IMPRESSION: 1. No sonographic evidence for DVT in either lower extremity.
[2019-05-17 13:25] VITALS: BP 170/86
== END 2019-05-17 18:16 | disposition home health service (06) ==
LOC: ED 20:52 → 4A 05-15 07:41
PROVIDERS: ADMIT Internal Medicine; ATTEND Internal Medicine
DX: R07.9 Chest pain, unspecified (principal); R07.89 Other chest pain; I16.0 Hypertensive urgency; I50.9 Heart failure, unspecified; I27.20 Pulmonary hypertension, unspecified; I11.0 Hypertensive heart disease with heart failure; I89.0 Lymphedema, not elsewhere classified; E66.2 Morbid (severe) obesity with alveolar hypoventilation; E78.5 Hyperlipidemia, unspecified; Z68.45 Body mass index [BMI] 70 or greater, adult
CPT/HCPCS: 36415; 71045; 80048; 82550; 82803; 83735; 83880; 84484; 85025; 85379; 85610; 85730; 93005; 93010; 93970; 94640; 96374; 96375; 96376; 97161; 99291; A9270; G0378; J0360; J1940; J2405; J3010

== ENCOUNTER 2020-02-05 19:01 | Emergency (ER) | payer MEDICARE ==
[2020-02-05] MEDS ORDERED: ONDANSETRON 4 MG/2 ML INJ IV ONE (21:13)
[2020-02-05] MEDS ORDERED: amLODIPine 5 MG TAB PO ONE (21:13)
--- NOTE | 2020-02-05 21:46 | Emergency Department Report ---
HPI - General Chief Complaint: Nausea/Vomiting/Diarrhea Time Seen by Provider: 02/05/20 20:23 - HPI HPI: This is a 64-year-old -[place] female presents to the emergency department via EMS from home with complaint of elevated blood pressure and some recent nausea with vomiting. The patient says that she is on lisinopril and an unnamed second medication, but she has been out of the medication for about 1 week. She has been checking her blood pressure at home and found it to be about 220/160. Patient says that she began having nausea and vomiting about 2 hours after eating dinner this evening. With the nausea and vomiting, combined with t he elevated blood pressure found, the patient called EMS. She did not take anything or receive anything for symptoms prior to presentation. On top of the hypertension, the patient also has a history of CHF. He does not have a primary care physician. No recent travel or sick contacts at home. She denies any fever, chest pain, shortness of breath, back pain, abdominal pain. ED Past Medical Hx - Past Medical History Previous Medical History?: Yes Hx Hypertension: Yes Hx Congestive Heart Failure: Yes Additional medical history: obesity - Surgical History Past Surgical History?: Yes Additional Surgical History: cabg - Social History Smoking Status: Never Smoker Substance Use Type: None - Medications Home Medications: Home Medications Medication Instructions Recorded Confirmed Last Taken Type Albuterol Sulfate [Proventil Hfa] 6.7 gm IH QID PRN #1 hfa.aer.ad 05/17/19 Unknown Rx AtorvaSTATin [Lipitor] 20 mg PO QHS #30 tablet 05/17/19 Unknown Rx Fluticasone/Salmeterol [Advair 1 puff IH BID #1 disk.w.dev 05/17/19 Unknown Rx Diskus 250-50 mcg] Furosemide [Lasix TAB] 40 mg PO BID #60 tablet 05/17/19 Unknown Rx carvediloL [Coreg] 3.125 mg PO BID #60 tablet 02/06/20 Unknown Rx lisinopriL [Zestril TAB] 20 mg PO QDAY #30 tablet 02/06/20 Unknown Rx ED Review of Systems ROS: Stated complaint: NAUSEA AND VOMITING Other details as noted in HPI Comment: All other systems reviewed and negative Constitutional: denies: chills, fever Eyes: denies: eye pain, vision change ENT: denies: ear pain, throat pain Respiratory: denies: cough, shortness of breath Cardiovascular: denies: chest pain, palpitations Gastrointestinal: nausea, vomiting. denies: abdominal pain Genitourinary: denies: dysuria, discharge Musculoskeletal: denies: back pain, arthralgia Skin: denies: rash, lesions Neurological: denies: headache, weakness Physical Exam - Physical Exam Vital Signs: Vital Signs 02/05/20 20:20 Temperature 97.5 F L Pulse Rate 69 Respiratory 16 Rate O2 Sat by Pulse 100 Oximetry Physical Exam: GENERAL: The patient is well-developed well-nourished. HENT: Normocephalic. Atraumatic. Patient has moist mucous membranes. EYES: Extraocular motions are intact. NECK: Supple. Trachea is midline. CHEST/LUNGS: Clear to auscultation. There is no respiratory distress noted. HEART/CARDIOVASCULAR: Regular. There is no tachycardia. There is no murmur. ABDOMEN: Abdomen is soft, nontender. Patient has normal bowel sounds. Morbidly obese habitus. SKIN: Skin is warm and dry. NEURO: The patient is awake, alert, and oriented. The patient is cooperative. The patient has no focal neurologic deficits. Normal speech. MUSCULOSKELETAL: There is no tenderness or deformity. There is no limitation range of motion. ED Course Vital Signs 02/05/20 20:20 Temperature 97.5 F L Pulse Rate 69 Respiratory 16 Rate O2 Sat by Pulse 100 Oximetry ED Medical Decision Making - Lab Data Result diagrams: 02/05/20 22:36 02/05/20 22:36 - EKG Data -: EKG Interpreted by Me EKG shows normal: sinus rhythm, axis, intervals, QRS complexes, ST-T waves Rate: normal - EKG Data When compared to previous EKG there are: no significant change Interpretation: normal EKG, unchanged when compared t (05/15/19) - Medical Decision Making This patient presents to the emergency department with a complaint of uncontrolled blood pressure and the patient stated that she had some nausea and vomiting prior to presentation this evening. The patient admits that she has been noncompliant with her medication over the past 1 to 2 weeks. Initially she says she was on lisinopril and "another medication", but previous records show this to be Coreg. The patient was given a few doses of antihypertensive medication and a dose of IV Zofran. Her labs have been mostly unremarkable except for some mild renal insufficiency with a GFR of 50. Patient's blood pressure came down to a more reasonable level. She was reevaluated multiple times over multiple hours and there has been no further nausea or vomiting and the patient says that she feels well. Due to the patient's weight and size she ambulates only with a walker. But we did see the patient stand and transfer. She has been instructed to follow-up with primary care and also has been given a referral for nephrology. She will return to the emergency department with any worsening of her symptoms or with any acute distress. Critical Care Time: No Critical care attestation.: If time is entered above; I have spent that time in minutes in the direct care of this critically ill patient, excluding procedure time. ED Disposition Clinical Impression: Mild renal insufficiency HTN (hypertension) Qualifiers: Hypertension type: essential hypertension Qualified Code(s): I10 - Essential (primary) hypertension Nausea & vomiting Qualifiers: Vomiting type: unspecified Vomiting Intractability: non-intractable Qualified Code(s): R11.2 - Nausea with vomiting, unspecified Disposition: DC-01 TO HOME OR SELFCARE Is pt being admited?: No Condition: Stable Instructions: Nausea and Vomiting, Adult, Hypertension, Adult, Hypertension (ED) Additional Instructions: Please follow-up with a primary care physician in the next few days. I am giving you a referral for a local transit manager, Dr. Villeda, to follow-up regarding the mild decreased kidney function found on your labs today. Stay away from any NSAIDs such as ibuprofen, Aleve, Advil, naproxen, Naprosyn, until follow-up with the transit manager. Return to the emergency department with any worsening of your symptoms, new or concerning symptoms not addressed during this current emergency department visit, or with any acute distress. Prescriptions: carvediloL [Coreg] 3.125 mg PO BID #60 tablet lisinopriL [Zestril TAB] 20 mg PO QDAY #30 tablet Referrals: KARLOS ALMAZAN MD [Primary Care Provider] - 2-3 Days ALTAGRACIA LAWRENCE MD [Staff Physician] - 2-3 Days VICTOR M VILLEDA MD [Staff Physician] - 2-3 Days MONAE VALADEZ MD [Staff Physician] - 2-3 Days [facility] [Provider Group] - 2-3 Days Time of Disposition: 00:58
[2020-02-05 22:59] LABS: Basophils % (Auto) 0.3 % (0.0-1.8); Eosinophils % (Auto) 0.3 % (0.0-4.3); Hematocrit 34.5 % (30.3-42.9); Hemoglobin 11.3 gm/dl (10.1-14.3); Lymphocytes # (Auto) 0.8 K/mm3 (1.2-5.4); Lymphocytes % (Auto) 7.7 % (13.4-35.0); Mean Corpuscular HGB Conc 33 % (30-34); Mean Corpuscular Volume 92 fl (79-97); Monocytes # (Auto) 0.4 K/mm3 (0.0-0.8); Monocytes % (Auto) 3.6 % (0.0-7.3); Platelet Count 218 K/mm3 (140-440); Red Blood Count 3.76 M/mm3 (3.65-5.03); Red Cell Distribution Width 14.6 % (13.2-15.2)
[2020-02-05 23:20] LABS: Albumin 3.9 g/dL (3.9-5); Calcium 9.5 mg/dL (8.4-10.2)
[2020-02-06 00:46] VITALS: BP 185/71
[2020-02-06 01:03] LABS: Bilirubin,Urine NEG (Negative); Blood,Urine NEG (Negative); Color,Urine Straw (Yellow); Urobilinogen,Urine < 2.0 mg/dL (<2.0); WBC,Urine < 1.0 /HPF (0.0-6.0)
== END 2020-02-06 03:00 | disposition home or self-care (01) ==
LOC: ED 19:01
DX: N28.9 Disorder of kidney and ureter, unspecified (principal); R11.2 Nausea with vomiting, unspecified; I11.0 Hypertensive heart disease with heart failure; I50.9 Heart failure, unspecified; Z98.890 Other specified postprocedural states; Z79.899 Other long term (current) drug therapy; Z88.0 Allergy status to penicillin
CPT/HCPCS: 36415; 80053; 81001; 84443; 85025; 93005; 96374; 96375; 96376; 99284; J2405; 80320; G0480

== ENCOUNTER 2021-12-06 11:39 | Emergency (ER) | payer MEDICARE ==
[2021-12-06] MEDS ORDERED: LISINOPRIL 20 MG TAB PO ONE (18:03)
[2021-12-06] MEDS ORDERED: FUROSEMIDE 20 MG TAB PO ONE (18:20)
--- NOTE | 2021-12-06 18:20 | Emergency Department Report ---
ED General Adult HPI - General Chief complaint: High BP Time Seen by Provider: 12/06/21 17:56 Source: patient Mode of arrival: Ambulatory Limitations: No Limitations - History of Present Illness Initial comments: Patient is a 66-year-old morbidly obese female who was seen by home health nurse and found to have a blood pressure of 181/110 so ambulance was called. The patient's stated she felt fine. Denies any headache visual changes focal weakness slurred speech or dysphagia. No chest pain shortness of breath or palpitations. No orthopnea or PND. She does state that because of her obesity she has a difficult time walking and has not been to the doctor in over a year. Her insurance company has set her up with a provider to come to her house next week. She originally told me that her doses for her blood pressure medications were lisinopril 40 mg and furosemide 40 mg, however I called her pharmacy to verify and they stated that she was on 20 mg of lisinopril and 3.125 mg of carvedilol. However, that had not been filled since 2019. Patient also states that she recently had a cold and it "went to my eye." Has some irritation in the left eye but the rest of her symptoms have resolved. Associated Symptoms: denies: confusion, chest pain, cough, diaphoresis, fever/chills, headaches, loss of appetite, malaise, nausea/vomiting, rash, s eizure, shortness of breath, syncope, weakness - Related Data Previous Rx's Medication Instructions Recorded Last Taken Type Albuterol Sulfate [Proventil Hfa] 6.7 gm IH QID PRN #1 hfa.aer.ad 05/17/19 Unknown Rx AtorvaSTATin [Lipitor] 20 mg PO QHS #30 tablet 05/17/19 Unknown Rx Fluticasone/Salmeterol [Advair 1 puff IH BID #1 disk.w.dev 05/17/19 Unknown Rx Diskus 250-50 mcg] Furosemide [Lasix TAB] 40 mg PO BID #60 tablet 05/17/19 Unknown Rx carvediloL [Coreg] 3.125 mg PO BID #60 tablet 02/06/20 Unknown Rx lisinopriL [Zestril TAB] 20 mg PO QDAY #30 tablet 02/06/20 Unknown Rx Ciprofloxacin HCl [Ciloxan OPTH 0.5 inch OS TID 7 Days #1 tube 12/06/21 Unknown Rx OINT] Furosemide [Lasix TAB] 20 mg PO QDAY #30 tablet 12/06/21 Unknown Rx Potassium Chloride [K-Dur] 10 meq PO QDAY #30 tab 12/06/21 Unknown Rx lisinopriL [Lisinopril] 20 mg PO DAILY #30 tab 12/06/21 Unknown Rx Allergies Allergy/AdvReac Type Severity Reaction Status Date / Time Penicillins Allergy Hives Verified 04/03/19 00:37 ED Review of Systems ROS: Stated complaint: Other details as noted in HPI Comment: All other systems reviewed and negative Constitutional: denies: chills, fever Eyes: eye discharge. denies: vision change ENT: denies: ear pain, throat pain Respiratory: denies: cough, shortness of breath, wheezing Cardiovascular: denies: chest pain, palpitations Endocrine: no symptoms reported Gastrointestinal: denies: abdominal pain, nausea, diarrhea Genitourinary: denies: urgency, dysuria, discharge Musculoskeletal: denies: back pain, joint swelling, arthralgia Skin: denies: rash, lesions Neurological: denies: headache, weakness, paresthesias Psychiatric: denies: anxiety, depression Hematological/Lymphatic: denies: easy bleeding, easy bruising ED Past Medical Hx - Past Medical History Hx Hypertension: Yes Hx Congestive Heart Failure: Yes Additional medical history: obesity - Surgical History Additional Surgical History: cabg - Social History Smoking Status: Never Smoker Substance Use Type: None - Medications Home Medications: Home Medications Medication Instructions Recorded Confirmed Last Taken Type Albuterol Sulfate [Proventil Hfa] 6.7 gm IH QID PRN #1 hfa.aer.ad 05/17/19 Unknown Rx AtorvaSTATin [Lipitor] 20 mg PO QHS #30 tablet 05/17/19 Unknown Rx Fluticasone/Salmeterol [Advair 1 puff IH BID #1 disk.w.dev 05/17/19 Unknown Rx Diskus 250-50 mcg] Furosemide [Lasix TAB] 40 mg PO BID #60 tablet 05/17/19 Unknown Rx carvediloL [Coreg] 3.125 mg PO BID #60 tablet 02/06/20 Unknown Rx lisinopriL [Zestril TAB] 20 mg PO QDAY #30 tablet 02/06/20 Unknown Rx Ciprofloxacin HCl [Ciloxan OPTH 0.5 inch OS TID 7 Days #1 tube 12/06/21 Unknown Rx OINT] Furosemide [Lasix TAB] 20 mg PO QDAY #30 tablet 12/06/21 Unknown Rx Potassium Chloride [K-Dur] 10 meq PO QDAY #30 tab 12/06/21 Unknown Rx lisinopriL [Lisinopril] 20 mg PO DAILY #30 tab 12/06/21 Unknown Rx ED Physical Exam - General Limitations: No Limitations ED Course Vital Signs 12/06/21 11:48 Temperature 98.8 F Pulse Rate 97 H Respiratory 18 Rate Blood Pressure 180/110 [Left] O2 Sat by Pulse 97 Oximetry - Reevaluation(s) Reevaluation #1: 12/06/21 22:03 Patient remains symptom-free in terms of blood pressure throughout her stay. Final blood pressure 164/72 after Lasix and lisinopril. We will send her out on those 2 medications and have her follow-up with her home health physician as scheduled next week for further adjustment. 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 Patient did not have any symptoms and work-up here is normal including an EKG that reveals sinus rhythm at 74 bpm without ischemic changes. Patient remained asymptomatic here with the exception of left eye Irritation and discharge, which I will treat. . Patient has not been on her blood pressure medications for a couple years because she has not been able to get out of her home. She states it is too hard to walk due to her weight. There is some confusion as to what medication she was on at home but here in the ER I gave her 20 mg of lisinopril and 20 mg of furosemide which brought her blood pressure down to 164/72. Critical care attestation.: If time is entered above; I have spent that time in minutes in the direct care of this critically ill patient, excluding procedure time. ED Disposition Clinical Impression: Hypertension, Conjunctivitis Disposition: 01 HOME / SELF CARE / HOMELESS Is pt being admited?: No Condition: Stable Instructions: Hypertension (ED), Preventing Hypertension, Hypertension, Adult, [id number], Bacterial Conjunctivitis, Adult Additional Instructions: Blood pressure medications as prescribed. Cipro eyedrops as prescribed. Follow-up with home health doctor as scheduled next week. Prescriptions: Ciprofloxacin HCl [Ciloxan OPTH OINT] 0.5 inch OS TID 7 Days #1 tube Potassium Chloride [K-Dur] 10 meq PO QDAY #30 tab Furosemide [Lasix TAB] 20 mg PO QDAY #30 tablet lisinopriL [Lisinopril] 20 mg PO DAILY #30 tab Referrals: PRIMARY CARE, [Primary Care Provider] - 3-5 Days Time of Disposition: 22:15
[2021-12-06 19:50] LABS: Basophils % (Auto) 0.4 % (0.0-1.8); Eosinophils # (Auto) 0.3 K/mm3 (0.0-0.4); Hemoglobin 9.7 gm/dl (10.1-14.3); Lymphocytes # (Auto) 1.6 K/mm3 (1.2-5.4); Mean Corpuscular HGB Conc 32 % (30-34); Mean Corpuscular Volume 91 fl (79-97); Monocytes # (Auto) 0.7 K/mm3 (0.0-0.8); Monocytes % (Auto) 9.1 % (0.0-7.3); Platelet Count 200 K/mm3 (140-440); Red Blood Count 3.28 M/mm3 (3.65-5.03); Red Cell Distribution Width 14.6 % (13.2-15.2)
[2021-12-06 19:58] LABS: Calcium 8.6 mg/dL (8.4-10.2)
--- NOTE | 2021-12-07 11:52 | Electrocardiograph Report ---
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
[2021-12-08] MEDS: LISINOPRIL 20 MG TAB PO SCH (11:44)
[2021-12-08] MEDS: POTASSIUM CHLORIDE ER 10 MEQ TAB PO SCH (11:45)
[2021-12-08] MEDS: FUROSEMIDE 20 MG TAB PO SCH (11:45)
[2021-12-08] MEDS ORDERED: cloNIDine 0.2 MG TAB PO STA (21:10)
[2021-12-09] MEDS ORDERED: cloNIDine 0.2 MG TAB PO STA (01:47)
[2021-12-09] MEDS ORDERED: hydrALAZINE 25 MG TAB PO ONE (01:47)
[2021-12-09 09:31] VITALS: BP 163/74
[2021-12-09] MEDS: LISINOPRIL 20 MG TAB PO SCH (11:15)
[2021-12-09] MEDS: FUROSEMIDE 20 MG TAB PO SCH (11:15)
[2021-12-09] MEDS: POTASSIUM CHLORIDE ER 10 MEQ TAB PO SCH (11:15)
== END 2021-12-10 08:07 | disposition home or self-care (01) ==
LOC: ED 11:39
DX: H10.9 Unspecified conjunctivitis (principal); I50.9 Heart failure, unspecified; I11.0 Hypertensive heart disease with heart failure; Z88.0 Allergy status to penicillin
CPT/HCPCS: 36415; 80048; 85025; 93005; 99283; 99284